=== PATIENT | female | born 1985 | race Caucasian/White ===

== ENCOUNTER 2024-12-27 18:20 | Emergency (ER) | payer OTHER, SELFPAY ==
--- OUTSIDE RECORDS SUMMARY | 2024-09-23 09:38 | XMS_ITS | Continuity of Care Document ---
Author Organization [facility] Address [address] [place] [id number] Phone Care Team Providers Care Manager Star Name Role Phone Nicolette Barrios DDS Unavailable Unavailable Allergies, Adverse Reactions, Alerts Substance Reaction Status Criticality cefaclor Active No Information Sulfa (Sulfonamide Antibiotics) Active No Information Medications Medication Instructions Dosage Effective Dates (start - stop) Status Comments Topamax 200 mg tablet take 1 tablet by o ral route 2 times every day 200 MG - Active Lyrica 25 mg capsule take 1 capsule by o ral route 3 times every day 25 MG - Active Concerta 54 mg tablet,extended release take 1 tablet by oral route every day in the morning 54 MG - Active Procedures Procedure Date Prophylaxis Adult Nutrit Couns For [employer] Of [place] Dis Sep Oral Hygiene Instruction Bitewings Four Films Prophylaxis Adult Nutrit [employer]s For [employer] [place] Dis Mar Oral Hygiene Instruction Periodic Oral Eval Estab Patient 2023 Prophylaxis Adult Nutrit Couns For [employer] Of [place] Dis Sep Oral Hygiene Instruction Bitewings Four Films Prophylaxis Adult Moderate Risk Nutrit [employer] [place] Dis Feb Oral Hygiene Instruction Prophylaxis Adult Oral Hygiene Instruction Bitewings Four Films Prophylaxis Adult Oral Hygiene Instruction Periodic Oral Eval Estab Patient 2021 Prophylaxis Adult Oral Hygiene Instruction Bitewings Four Films Prophylaxis Adult Oral Hygiene Instruction Periodic Oral Eval Estab Patient 2020 PPE Prophylaxis Adult Oral Hygiene Instruction Prophylaxis Adult [employer]rit [employer] [place] Dis May Tobacco Counseling Oral Hygiene Instruction Intraoral-periapical 1st Film 9 Nutrit [employer] [place] Dis Jan Tobacco Counseling Oral Hygiene Instruction Limited Oral Eval Periodic Oral Eval Estab Patient 2018 Bitewings-two Films Prophylaxis Adult Oral Hygiene Instruction Prophylaxis Adult Nutrit Couns For [employer] Of [place] Dis May Oral Hygiene Instruction Periodic Oral Eval Estab Patient 2017 Bitewings Four Films Prophylaxis Adult Oral Hygiene Instruction Prophylaxis Adult Oral Hygiene Instruction IMMUNIZATION ADMIN FLU VAC NO PRSV 4 TIARA 3 YRS+ Periodic Oral Eval Estab Patient 2016 Prophylaxis Adult Oral Hygiene Instruction Prophylaxis Adult Oral Hygiene Instruction Periodic Oral Eval Estab Patient 2015 Bitewings Four Films Prophylaxis Adult Oral Hygiene Instruction Prophylaxis Adult Oral Hygiene Instruction Resin Composite 1s; Posterior 5 Treatment Completed Periodic Oral Eval Estab Patient 2014 Prophylaxis Adult Bitewings Four Films Prophylaxis Adult Oral Hygiene Instruction OFFICE/OUTPATIENT VISIT, EST Prophylaxis Adult Oral Hygiene Instruction Comp Oral Eval New/estab Patient 2013 Intraoral-complete Series (bw) 14 OFFICE/OUTPATIENT VISIT, EST OFFICE/OUTPATIENT VISIT, EST OFFICE/OUTPATIENT VISIT, EST OFFICE/OUTPATIENT VISIT, EST URINALYSIS NONAUTO W/O SCOPE OFFICE/OUTPATIENT VISIT, EST OFFICE/OUTPATIENT VISIT, EST ODH SPECIMEN HANDLING (GC/CHLAMYDIA) August OFFICE/OUTPATIENT VISIT, EST OFFICE/OUTPATIENT VISIT, EST CARE COORDINATION OFFICE/OUTPATIENT VISIT, EST ROUTINE VENIPUNCTURE RISK ASSISSMENT COUNSELING AND EDUCATION OFFICE/OUTPATIENT VISIT, EST URINE TEST Advance Directives Directive Yes / No Effective Date File Name No Information Encounters Encounter Description Practice Location Reason(s) For Visit Diagnoses Date Provider Providers Copied on Encounter [facility], [address] [place] [address], [id number] , tel: [phone] [facility] (chief complaint) Body mass index [BMI] 20.0-20.9, adultEncounter for screening for dental disorders 5 [employer] Nicolette. . tel:[phone] [address] [place] [address], [address] [place] [address], [id number] , tel:[phone] [facility] (chief complaint) Encounter for screening for dental disorders 4 [employer] Nicolette. . tel:[phone] [address] [place] [address], [address] [place] [address], [id number] , tel:[phone] [facility] (chief complaint) Encounter for screening for dental disorders 4 Sophie PARSONSS Nicolette. . tel:[phone] [facility], [address] [place], [place], [id number] , [place] tel: [phone] [facility] [place] (chief complaint) Encounter for screening for dental disorders 3 Augusto DDS Lawrence. [address] [place], [address], [place]. tel:[phone] [facility], [address] [place], [place], [id number] , [place] tel:[phone] Dental Clinic prophy (chief complaint) Encounter for screening for dental disorders 2 Sophie Jaramillo. [address] [place], [place], [id number], [place]. tel:[phone] [facility], [address] [place], [place], [id number] , [place] tel: [phone] [facility] Prophy adult (chief complaint) Encounter for screening for dental disorders 2 Kurt Pickett. [address] [place], [place], [id number], [place]. tel:[phone] [facility], [address] [place] [address], [id number] , [place] tel:[phone] Dental Clinic prophy (chief complaint) Encounter for screening for dental disorders 1 Michel Huff. [address] [place], [address], [place]. tel:[phone] [facility], [address] [place], [place], [id number] , [place] tel:[phone] Dental Clinic prophy (chief complaint) Encounter for screening for dental disorders 1 Kurt Pickett. [address] [place], [place], [id number], [place]. tel:[phone] [facility], [address] [place], [place], [id number] , [place] tel:[phone] [facility] Clinic Encounter for screening for dental disorders 0 Jazmyn DDS Sarita. [address] [place], [place], [id number], [place]. tel:[phone] [facility], [address] [place], [id number] , [place] tel: [phone] Dental Clinic Encounter for screening for dental disorders - 0 Zane Wells. [address] [place], [place], [id number], [place]. tel:[phone] [facility], [address] [place], [place], [id number] , [place] tel:[phone] Dental Clinic dental limited (chief complaint) Encounter for screening for dental disorders [address] [facility]. [address] [place], [place], [id number], [place]. tel:[phone] [address] [place] [address], [address] [place] [address], [id number] , [place] tel: [phone] [facility] Prophy (chief complaint) Encounter for screening for dental disorders 9 Zane Wells. [address] [place], [place], [id number], [place]. tel:[phone] [facility], [address] [place] [address], [id number] , [place] tel: [phone] Dental Clinic prophy adult (chief complaint) Encounter for screening for dental disorders [address] [facility]. [address] [place], [place], [id number], [place]. tel:[phone] [facility], [address] [place], [place], [id number] , [place] tel:[phone] Dental Clinic prophy (chief complaint) Encounter for screening for dental disorders 0 8 Marcia Lazaro . [address] [place], [address], [place]. tel:[phone] [facility], [address] [place] [address], [id number] , [place] tel:[phone] Dental Clinic prophy (chief complaint) Encounter for screening for dental disorders 8 Eduardo DMD Chrisn. [address] [facility], [place], [address], [place]. tel:[phone] [facility], [address] [facility], [place], [place], [id number] , [place] tel:[phone] [facility] No Information [address] [facility], [place], [place], [id number], [place]. tel:[phone] [facility], [address] [facility], [place], [place], [id number] , [place] tel:[phone] Dental Clinic Prophy (chief complaint) Encounter for screening for dental disorders [address] [facility], [place], [address], [place]. tel:[phone] [facility], [address] [place], [place], [id number] , [place] tel:[phone] Dental Clinic prophy (chief complaint) Encounter for screening for dental disorders 7 Morris RODERICK Vasquez. [address] [place], [address], [place]. tel:[phone] [facility], [address] [place], [place], [id number] , [place] tel:[phone] Dental Clinic prophy (chief complaint) Encounter for screening for dental disorders 6 [facility]. [address] [place], [place], [id number], [place]. tel:[phone] [facility], [address] [place], [place], [id number] , [place] tel:[phone] Dental Clinic prophy (chief complaint) Encounter for screening for dental disorders 5 [facility]. [address] [place], [place], [id number], [place]. tel:[phone] [facility], [address] [place], [place], [address] , [place] tel:[phone] Dental Clinic Dental examination Sep 0- 5 [facility] July. [address] [place], [place], [id number], [place]. tel:[phone] [facility], [address] [place], [place], [address] , [place] tel:[phone] Dental Clinic Dental examination 8 5 [facility] July. [address] [place], [place], [id number], [place]. tel:[phone] [facility], [address] [place], [place], [id number] , [place] tel:[phone] Dental Clinic Dental examination 4 [facility]. [address] [place], [place], [id number], [place]. tel:[phone] OFFICE/OUTPA TIENT VISIT, [facility], [address] [place], [place], [id number] , [place] tel:[phone] [facility] Influenza Vaccine 4 Jazlyn Up. [address] [place], [place], [id number], [place]. tel:[phone] [facility], [address] [place] [address], [id number] , [place] tel:[phone] Dental Clinic Dental examination 0 4 [facility] July. [address] [place], [place], [id number], [place]. tel:[phone] [facility], [address] [place], [place], [address] , [place] tel:[phone] Dental Clinic Dental examination 4 [facility] July. [address] [place], [place], [address], [place]. tel:[phone] OFFICE/OUTPA TIENT VISIT, [facility], [address] [place], [place], [id number] , [place] tel:[phone] [facility] Routine PN Visit (chief complaint) No Information 3 Radha Pérez. [address] [place], [place], [id number], [place]. tel:[phone] 623 OFFICE/OUTPA TIENT VISIT, [facility], [address] [place], [place], [address] , [place] tel:[phone] [facility] Routine PN Visit (chief complaint) No Information 3 Radha Pérez. [address] [place], [place], [id number], [place]. tel:[phone] OFFICE/OUTPA TIENT VISIT, [facility], [address] [place], [place], [address] , [place] tel:[phone] [facility] Routine PN Visit (chief complaint) Supervision of normal first pregnancySupervi rebel of other normal 3 Radha Pérez. [address] [place], [place], [id number], [place]. tel:[phone] 623 OFFICE/OUTPA TIENT VISIT, [facility], [address] [place], [place], [address] , [place] tel:[phone] [facility] PN problem visit (chief complaint) Supervision of normal first 3 Radha Pérez. [address] [place], [place], [address], [place]. tel:[phone] 623 OFFICE/OUTPA TIENT VISIT, [facility], [address] [place], [place], [address] , [place] tel:[phone] [facility] No Information 3 Radha Pérez. [address] [place], [place], [address], [place]. tel:[phone] OFFICE/OUTPA TIENT VISIT, [facility], [address] [place], [place], [address] , [place] tel:[phone] [facility] test (chief complaint) examination or test, positive result 3 Jazlyn Up. [address] [place], [place], [id number], . tel:[phone] Family History Family Member Type Diagnosis Age At Onset Problem (finding) Family history of Diabe sonja mellitus Brother Problem (finding) asthma Problem (finding) Family history of strok e Mother Problem (finding) Arthritis Mother Problem (finding) hypertension Mother Problem (finding) migraine Problem (finding) Family history of [place] Mother Problem (finding) Alive and well Brother Problem (finding) Alive and well Immunizations Vaccine Date Status Comments Influenza virus vaccine, injectable, quadrivalent, split virus, preservative free, 3 years or older Fluarix, Flulaval or Fluzone Quad administered Source: New Immuniza tion Record Flu (split) (3 yrs or older) administered Note: Flu vis given. ; Source: New Immunization Record Payers Payer name Insurance type Covered republican ID Authoriza tion(s) D UHC Medicaid [employer] [place] [id number] D Medicaid Wrap - [facility] [place] [id number] [facility] [id number] Medicaid Wrap - [employer] MC [id number] Social History Type Description Quantity Date Captured Comments Alcohol Use Details No Caffeine Use Details tea 2 cups per day Tobacco Use Status Never smoked tobacco 2024 Smoking Status Never smoker Sex Female Yes - Patient is cur rently Sexual Orientation Straight or heterosexual Gender Identity Female Vital Signs Date / Time: Height Weight BMI Pulse Rate Blood Pressure Temperature Respiratory Rate Body Surface Area Head Circumference Head Circ. Percentile Wt./Michael. Percentile BMI percentile Pulse Ox Inhaled Ox 1:46 PM 64.00 in 54.885 kg (121.00 lbs) 20.7 7 kg/m eter (2) 67 /min 130/84 mm[Hg] 98.00 F Chief Complaint And Reason For Visit From encounter dated '09/23/2024 13:38'. PA (chief complaint). Description: PA Reason For Referral Reason For Referral No Information Plan Of Treatment Date Type Action Status Goal Hep A. Due on du e Goal HPV. Due on due Goal Hepatitis C screening. Due o n due Goal Tdap Vaccine. Due on 2024 due Goal Depression screening. Due on due Goal Unhealthy drug use screening . Due on due Goal Influenza Vaccine. Due on due Goal Tdap. Due on due Goal PRAPARE ASSESSMENT. Due on due Goal Breast exam. Due on due Goal RLP. Due on due Goal Dietary manageme nt education, guidance, and counseling completed Goal Unhealthy drug use screening . Due on due Goal Breast exam. Due on due Goal PRAPARE ASSESSMENT. Due on due Goal Tdap Vaccine. Due on 2023 due Goal Influenza Vaccine. Due on due Goal HPV. Due on due Goal Depression screening. Due on due Goal RLP. Due on due Goal Hepatitis C screening. Due o n due Goal Tdap. Due on due Goal PRAPARE ASSESSMENT. Due on due Goal Breast exam. Due on due Goal RLP. Due on due Goal Tdap Vaccine. Due on 2023 due Goal Unhealthy drug use screening . Due on due Goal Hep A. Due on du e Goal Hepatitis C screening. Due o n due Goal Depression screening. Due on due Goal HPV. Due on due Goal Tdap. Due on due Goal Influenza Vaccine. Due on Oc due Goal Breast exam. Due on 023 due Goal RLP. Due on due Goal Hep A. Due on du e Goal Tdap Vaccine. Due on 2022 due Goal Influenza Vaccine. Due on Oc due Goal PRAPARE ASSESSMENT. Due on N due Goal Depression screening. Due on due Goal Hep A. Due on du e Goal HPV. Due on due Goal Hepatitis C screening. Due o n due Goal Tdap. Due on due Goal Unhealthy drug use screening . Due on due Goal Tdap. Due on due Goal Breast exam. Due on due Goal RLP. Due on due Goal Influenza Vaccine. Due on Oc due Goal Depression screening. Due on due Goal PRAPARE ASSESSMENT. Due on S due Goal Depression screening. Due on due Goal Influenza Vaccine. Due on Oc due Goal RLP. Due on due Goal Tdap. Due on due Goal Breast exam. Due on due Goal RLP. Due on due Goal Influenza Vaccine. Due on Oc due Goal Breast exam. Due on due Goal Tdap. Due on due Goal Depression screening. Due on due Goal Breast exam. Due on due Goal RLP. Due on due Goal Influenza Vaccine. Due on Oc due Goal Depression screening. Due on due Goal Tdap. Due on due Goal Depression screening. Due on due Goal Influenza Vaccine. Due on Oc due Goal RLP. Due on due Goal Tdap. Due on due Goal Breast exam. Due on due Goal Breast exam. Due on due Goal Depression screening. Due on due Goal Tdap. Due on due Goal RLP. Due on due Goal Influenza Vaccine. Due on Ap due Goal Breast exam. Due on due Goal Depression screening. Due on due Goal Tdap. Due on due Goal RLP. Due on due Goal Influenza Vaccine. Due on Ap due Goal Influenza Vaccine. Due on Ap due Goal RLP. Due on due Goal Tdap. Due on due Goal Depression screening. Due on due Goal Breast exam. Due on due Goal Breast exam. Due on due Goal Depression screening. Due on due Goal Tdap. Due on due Goal RLP. Due on due Goal Influenza Vaccine. Due on due Goal Influenza Vaccine. Due on Oc due Goal RLP. Due on due Goal Tdap. Due on due Goal Depression screening. Due on due Goal Breast exam. Due on due Goal Influenza Vaccine. Due on Oc due Goal Depression screening. Due on due Goal Breast exam. Due on due Goal Tdap. Due on due Goal RLP. Due on due Goal Influenza Vaccine. Due on Oc due Goal Tdap. Due on due Goal Depression screening. Due on due Goal RLP. Due on due Goal Breast exam. Due on due Goal Breast exam. Due on due Goal Tdap. Due on due Goal PAP. Due on due Goal Influenza Vaccine. Due on Oc due Goal RLP. Due on due Goal Depression screening. Due on due Goal Influenza Vaccine. Due on Oc due Goal PAP. Due on due Goal Depression screening. Due on due Goal Td vaccine. Due on 17 due Goal Breast exam. Due on due Goal Tdap. Due on due Goal Td vaccine. Due on 16 due Goal Tdap. Due on due Goal Breast exam. Due on due Goal Depression screening. Due on due Goal PAP. Due on due Goal Tdap. Due on due Goal Depression screening. Due on due Goal Breast exam. Due on due Goal Td vaccine. Due on 15 due Goal Td vaccine. Due on 15 due Goal Breast exam. Due on due Goal Depression screening. Due on due Goal Tdap. Due on due Goal Breast exam. Due on due Goal Depression screening. Due on due Goal Td vaccine. Due on 15 due Goal Tdap. Due on due Goal Breast exam. Due on 013 due Goal Influenza Vaccine. Due on due Goal PAP. Due on due Appointment Sara Govea BOOKED History Of Present Illness Encounter Date Complaint History Of Prese nt Illness PA PA PA PA PA PA PA PA prophy prophy Prophy adult 6MRC prophy prophy prophy prophy dental limited lower right toot h bothering patient Prophy Prophy prophy adult 6MRC prophy prophy Prophy Prophy prophy prophy prophy Declined flu madina t Functional Status Date Functional Assessmen t No Information Instructions Date Instruction Additional Infor kavitha Dietary management e ducation, guidance, and counseling Related to Body mass index [BMI] 20.0-20.9, adult Giving encouragement to exercise Related to Body mass index [BMI] 20.0-20.9, adult Assessments Type Assessment Date assessment Body mass index [BMI] 20.0-20.9, adult assessment Encounter for screening for dent al disorders Patient Care Teams Name Effective Dates (start - stop) Status Members No Information
--- OUTSIDE RECORDS SUMMARY | 2024-12-17 16:40 | XMS_ITS | Encounter Summary ---
Author Organization [facility] Address [address] [place] [address] Care Team Providers Care Bus Van Driver Name Role Phone Kyle Colon DO Unavailable [phone] Kyle Colon DO Primary Care Provider [phone] Claudia Cage Unavailable Oxana Kelsey [facility] Unavailable [phone] Encounter Details Date Type Department Care Team (Late st Contact Info) Description 12/17/2024 4:40 PM EDT Office [facility] [address] [place] [phone] Opal Crane, CLIPPER OPERATOR [address] [facility] [address] [place] [address] Salivary gland infection (Primary Dx); Pharyngitis, unspecified etiology; Acute cough; Nasal congestion Social History Tobacco Use Types Packs/Day Years Used Date Smoking Tobacco: Never Smokeless Tobacco: Never Alcohol Use Standard Drinks/Week Comments Yes 1 (1 standard drink = 0.6 oz pure alcohol) caffiene- 1 red bull and 1 pop daily Humiliation, Afraid, Rape, and Kick questionnair e Answer Date Recorded Within the last year, have y ou been afraid of your partner or ex-partner? No 11/07/2022 Within the last year, have y ou been humiliated or emotionally abused in other ways by your partner or ex-partner? No Within the last year, have y ou been kicked, hit, slapped, or otherwise physically hurt by your partner or ex-partner? No 11/07/2022 Within the last year, have y ou been raped or forced to have any kind of sexual activity by your partner or ex-partner? No 11/07/2022 Social Connection and Isolat ion Panel [NHANES] Answer Date Recorded In a typical week, how many times do you talk on the phone with family, friends, or neighbors? More than three times a week 11/07/2022 How often do you get togethe r with friends or relatives? Once a week 11/07/2022 How often do you attend chur or faith services? More than 4 times per year 11/07/2022 Do you belong to any clubs o r organizations such as sabianism groups, unions, fraternal or athletic groups, or school groups? Yes 11/07/2022 How often do you attend meet ings of the clubs or organizations you belong to? More than 4 times per year 11/07/2022 Are you , , di vorced, , never , or living with a partner? Never 11/07/2022 AUDIT-C Answer Date Recorded Q1: How often do you have a drink containing alc ohol? 2-4 times a month 08/28/2023 Q2: How many drinks containi ng alcohol do you have on a typical day when you are drinking? 3 or 4 08/28/2023 Q3: How often do you have si x or more drinks on one occasion? Weekly 08/28/2023 Overall Financial Resource Strain (CARDIA) Answe r Date Recorded How hard is it for you to pa y for the very basics like food, housing, medical care, and heating? Not hard at all 11/07/2022 PHQ-2 Answer Date Recorded Patient Health Questionnaire-2 Score 2 07/03/2024 [facility] of Occupat ional Health - Occupational Stress Questionnaire Answer Date Recorded Do you feel stress - tense, restless, nervous, or anxious, or unable to sleep at night because your mind is troubled all the time - these days? Rather much 11/07/2022 Exercise Vital Sign Answer Date Recorde d On average, how many days pe r week do you engage in moderate to strenuous exercise (like a brisk walk)? 3 days 11/07/2022 On average, how many minutes do you engage in exercise at this level? 10 min 11/07/2022 Hunger Vital Sign Answer Date Recorded Within the past 12 months, y ou worried that your food would run out before you got the money to buy more. Never true 11/08/19 23 Within the past 12 months, t he food you bought just didn't last and you didn't have money to get more. Never true 11/07/2022 PRAPARE - Transportation Answer Date Re corded In the past 12 months, has l ack of transportation kept you from medical appointments or from getting medications? No 10/10 In the past 12 months, has l ack of transportation kept you from meetings, work, or from getting things needed for daily living? No 11/07/2022 Housing Stability Vital Sign Answer Rome e Recorded In the last 12 months, was t here a time when you were not able to pay the mortgage or rent on time? No 11/07/2022 In the last 12 months, how many places have you lived? 1 11/07/2022 In the last 12 months, was t here a time when you did not have a steady place to sleep or slept in a halfway (including now)? No 11/07/2022 Education Answer Date Recorded What is the highest level of school you have completed or the highest degree you have received? 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 [address], [address] [facility], [address] P: [phone] F: [phone] HPI Historian of HPI: patient Sara Govea is a 39 y.o. female who presents today to the Urgent Care with the following complaints and denials which have been present for 5 day(s) pt states she has been very tired. C/O Denies Symptom Comments [x] [] Runny Nose [x] [] Difficulty Swallowing [x] [] Sore Throat [x] [] Cough [x] [] Ear Pain B/l [] [x] Fever [] [x] Chills [x] [] Nasal Congestion [] [x] Myalgia [x] [] Sinus Pain [x] [] Sinus Pressure VALDEZ Additional Comments: pt has taken ibuprofen, dayquill OTC medication without relief ROS A complete system ROS was performed and negative aside from the pertinent positives noted in the HPI and PE. IH Testing: The following tests were performed Rapid Strep Nyasia Rapid COVID Test SEE TEST(S) ORDERS FOR RESULTS PHYSICAL EXAM Examination General examination: General Examination: alert, oriented, normal affect, well-appearing, in no acute distress, well developed, well nourished. Head: normocephalic, atraumatic Eyes: sclera anicteric Ears: TM dull and serous middle ear fluid Nose: Mild congestion with clear drainage noted Oral Cavity: mucosa moist Throat: Erythema and PND, salivary gland enlarged on the right Neck/Thyroid: neck supple, FROM, no cervical lymphadenopathy Lymph nodes: cervical nodes enlarged, tender, and easily moveable. Skin: no rashes Heart: no murmurs, regular rate and rhythm, S1, S2 normal Lungs: clear to auscultation bilaterally Musculoskeletal: normal Extremities: no edema, no cyanosis. Neurologic: nonfocal Psych: alert, oriented, cooperative with exam TREATMENT PLAN 1. Salivary gland infection (Primary) Discussed diagnosis, use of augmentin and its most common side effects. She is advised to increase her fluids, rest and continue the augmentin as ordered Follow up if continued or worsening symptoms. - amoxicillin-clavulanate (Augmentin) 875-125 MG tablet; Take 1 tablet (875 mg) by mouth in the morning and 1 tablet (875 mg) before bedtime. Do all this for 10 days. Dispense: 20 tablet; Refill: 0 2. Pharyngitis, unspecified etiology Rapid covid testing negative - RAPID COVID 19 ANTIGEN - RAPID STREP - methylPREDNISolone (Medrol Dospak) 4 MG tablets; Follow schedule on package instructions Dispense: 21 tablet; Refill: 0 3. Acute cough Discussed the use of capmist Dm and its most common side effects. - inpemgqgijcfjje-DB-NZ 60-15-400 MG tablet; Take 1 tablet by mouth 4 (four) times a day as needed (cough and congestion) for up to 10 days Dispense: 40 tablet; Refill: 0 4. Nasal congestion - petperuzxzoclhb-VN-MZ 60-15-400 MG tablet; Take 1 tablet by mouth 4 (four) times a day as needed (cough and congestion) for up to 10 days Dispense: 40 tablet; Refill: 0 documented in this encounter Plan of Treatment Upcoming Encounters Date Type Department Care Team (Late st Contact Info) Description 02/27/2025 2:15 PM EST Procedure Visit [facility] [address] [facility] [address] [place] [address] Monse Conrad CLIPPER OPERATOR 5[address] [facility] [address] [address] 04/21/2025 4:00 PM EST Office Visit [facility] [address] [facility] [address] [place] [address] Oxana Kelsey PMHNP- 112 [facility] [address] [place] [address] documented as of this encounter Procedures Procedure Name Priority Date/Time Associated Diagnosis Comments RAPID COVID 19 ANTIGEN Routine 12/17/2024 4:42 PM EDT Pharyngitis, unspecified etiology RAPID STREP Routine 12/17/2024 4:38 PM EDT Pharyngitis, unspecified etiology documented in this encounter Results * RAPID COVID 19 ANTIGEN (12/17/2024 4:42 PM EDT) COVID 19 RESULT OP neg Negative Nasal 12/17/2024 4:42 PM EDT Boaz Ash DO POINT OF CARE TEST ENTER/ED IT ORDERABLES Final Result * RAPID STREP (12/17/2024 4:38 PM EDT) RESULT neg Negative Throat 12/17/2024 4:38 PM EDT Boaz Ash DO POINT OF CARE TEST ENTER/ED IT ORDERABLES Final Result documented in this encounter Visit Diagnoses Diagnosis Salivary gland infection- Primary Sialoadenitis Pharyngitis, unspecified etiology Acute cough Nasal congestion Other diseases of nasal cavity and sinuses documented in this encounter Additional Health Concerns Assessment Noted Time PHQ-9 Depression Total Score: 4 07/04/19 25 3:46 PM EDT documented as of this encounter Care Teams Bus Van Driver Relationship Specialty Start Date End Date Kyle Colon DO [address] [place] [address] PCP - [facility] 07/09/22 Kyle Colon DO [address] [place] [address] PCP - General Family Medicine 06/23/23 Claudia Cage LISW-S [address] [place] [address] Cabinetmaker Apprentice Behavioral Health 04/17/24 Oxana Kelsey, PMHNP-BC [address] [phone] Nurse Practitioner Behavioral Health 06/05/24 documented as of this encounter
[2024-12-27 18:29] VITALS: BP 139/98; PULSE 85; TEMP 36.9; O2SAT 98; BMI 20.6
--- OUTSIDE RECORDS SUMMARY | 2024-12-27 18:43 | XMS_ITS | Encounter Summary ---
Author Organization [facility] Address [address] [facility] [place] [address] Care Team Providers Care Anesthesiology Medical Doctor Name Role Phone Kyle Colon DO Unavailable [phone] Unallocated, Noms Provider Primary Care Provi italia Kyle Colon DO Primary Care Provider Judith Mobley LPN Unavailable Unavailable Claudia Cage Unavailable [phone] Oxana Kelsey [facility]- Unavailable Clair Osborne RN Unavailable [phone] Encounter Details Date Type Department Care Team (Late st Contact Info) Description 11/08/2022 [facility] [address] [facility] [address] [place] [phone] Kyle Colon, DO [address] [facility] [address] [place] [address] Social History Tobacco Use Types Packs/Day Years Used Date Smoking Tobacco: Never Smokeless Tobacco: Never Tobacco Cessation:Counseling Given: Not Answered Alcohol Use Standard Drinks/Week Comments Yes 0 (1 standard drink = 0.6 oz pur e alcohol) 1-2x a month Humiliation, Afraid, Rape, and Kick questionnair e [...] 11/07/2022 How often do you attend chur ch or cheondoism services? More than 4 times per year 11/07/2022 Do you belong to any clubs o r organizations such as episcopal groups, unions, fraternal or athletic groups, or [...] containing alc ohol? 2-4 times a month 11/07/2022 Q2: How many drinks containi ng alcohol do you have on a typical day when you are drinking? 1 or 2 11/07/2022 Q3: How often do you have si x or more drinks on one occasion? Never 11/07/2022 Overall Financial Resource Strain (CARDIA) Answe r Date Recorded How hard is it for you to pa y for the very basics like food, housing, medical care, and heating? Not hard at all 11/07/2022 PHQ-2 Answer Date Recorded Patient Health Questionnaire-2 Score 0 11/08/2022 [facility] [place] of Occupat ional Health - Occupational Stress [...] in a halfway (including now)? No 11/07/2022 Comments Unknown Sex and Gender Information Value Date Recorded Sex Assigned at Female 12/22/2022 12:43 PM EDT Legal Sex Female 6:58 PM EDT Gender Identity Female 12/22/2022 12:43 PM EDT Sexual Orientation Not on file COVID-19 Exposure Response Date Recorded In the last 10 days, have yo u been in contact with someone who was confirmed or suspected to have Coronavirus/COVID-19? No / Unsure 11/07/2022 8:02 PM EDT documented as of this encounter Functional Status * Over the past 2 weeks, how often have you been bothered by any of the following problems? Question Answer Date of Assessment Author Little interest or pleasure in doing things Not at all 11/08/2022 2:36 PM EDT Ivelisse Tomlinson LP N Feeling down, depressed, or hopeless Not at all 11/08/2022 2:36 PM EDT Ivelisse Tomlinson LP N Patient Health Questionnaire -2 Score 0 11/08/2022 2:36 PM EDT Ivelisse Tomlinson LP N documented as of this encounter Plan of Treatment Upcoming Encounters Date Type Department Care Team (Late st Contact Info) Description 02/27/2025 2:15 PM EST Procedure Visit [facility] [address] [place] [phone] Monse Conrad, IT APPLICATION ADMINISTRATOR [address] [facility] [address] [id number] 04/21/2025 4:00 PM EST Office Visit [facility] 112 [facility] [address] [place] [address] Oxana Kelsey [facility] 112 [facility] [address] [place] [phone] documented as of this encounter Visit Diagnoses Not on filedocumented in this encounter Care Teams Anesthesiology Medical Doctor Relationship Specialty Start Date End Date Kyle Colon DO [address] [email or web address] [address] [place] [address] PCP - [facility] 07/09/22 Unallocated, Nomfranklyn Cortez MD [address] [place] [address] PCP - General Family Medicine 04/26/23 06/22/23 Kyle Colon DO [address] [email or web address] [address] [place] [address] PCP - General Family Medicine 06/23/23 Judith Molbey LPN Licensed Practical Nurse Family Medicine 02/21/24 06/10/24 Claudia Cage LISW-S [address] [place] [address] Autism Specialist Behavioral Health 04/17/24 Oxana Kelsey PMHNP- [address] [place] [address] Nurse Practitioner Behavioral Health 06/05/24 Clair Osborne, ALE [address] [place] [address] Licensed Practical Nurse Family Medicine 06/10/24 06/24/24 documented as of this encounter
--- OUTSIDE RECORDS SUMMARY | 2024-12-27 18:43 | XMS_ITS | Encounter Summary ---
Author Organization [facility] Address [address] [facility] [place] [address] Care Team Providers Care Complaint Evaluation Officer Name Role Phone Kyle Colon DO Unavailable [phone] Kyle Colon DO Primary Care Provider [phone] Judith Mobley LPN Unavailable Unavailable Claudia Cage Unavailable Oxana Kelsey [facility]- Unavailable Clair Osborne RN Unavailable [phone] Encounter Details Date Type Department Care Team (Late st Contact Info) Description 03/06/2024 [facility] [place] [facility] [address] [facility] [address] [place] [phone] Kyle Colon, DO [address] [facility] [address] [place] [address] Social History Tobacco Use Types Packs/Day Years Used Date Smoking Tobacco: Never Smokeless Tobacco: Never Alcohol Use Standard Drinks/Week Comments Yes 1 (1 standard drink = 0.6 oz pure alcohol) 1-2x a month, coffee,soda/pop,tea,energy drinks 2-3x a week Humiliation, Afraid, Rape, and Kick questionnair e [...] week 11/07/2022 How often do you attend [facility] or orthodoxy services? More than 4 times per year 11/07/2022 Do you belong to any clubs o r organizations such as faith groups, unions, fraternal or athletic groups, or [...] Date Recorded Patient Health Questionnaire-2 Score 0 10/03/2023 [facility] [place] of Occupat ional Health - Occupational Stress [...] place to sleep or slept in a chcf (including now)? No 11/07/2022 Education Answer Date [...] on file documented as of this encounter Plan of Treatment Upcoming Encounters Date Type Department Care Team (Late st Contact Info) Description 02/27/2025 2:15 PM EST Procedure Visit [facility] [address] [place] [address] Monse Conrad NP 53[address] [facility] [address] [place] [address] 04/21/2025 4:00 PM EST Office Visit [facility] [address] [facility] [address] [place] [phone] Oxana Kelsey, [facility] 112 [facility] [address] [place] [address] documented as of this encounter Visit Diagnoses Not on filedocumented in this encounter Additional Health Concerns Assessment Noted Time PHQ-9 Depression Total Score: 12 024 2:18 PM EDT documented as of this encounter Care Teams Complaint Evaluation Officer Relationship Specialty Start Date End Date Kyle Colon DO [address] [facility] [address] [place] [address] PCP - [facility] 07/09/22 Kyle Colon DO [address] [facility] 230 [place] [address] PCP - General Family Medicine 06/23/23 Judith Mobley LPN Licensed Practical Nurse Family Medicine 02/21/24 06/10/24 Claudia Cage LISW-S [address] [facility] [address] [place] [address] Game Protector Behavioral Health 04/17/24 Oxana Kelsey, [facility] [address] [facility] [facility] [address] [place] [address] Nurse Practitioner Behavioral Health 06/05/24 Clair Osborne, RN [address] [place] [address] Licensed Practical Nurse Family Medicine 06/10/24 06/24/24 documented as of this encounter
--- OUTSIDE RECORDS SUMMARY | 2024-12-27 18:43 | XMS_ITS | Encounter Summary ---
Author Organization [facility] Address [address] [place] [address] Care Team Providers Care Automobile Body Repair Supervisor Name Role Phone Kyle Colon DO Unavailable [phone] Kyle Colon DO Primary Care Provider [phone] Judith Mobley LPN Unavailable Unavailable Claudia Cage Unavailable Oxana Kelsey PMHNP- Unavailable Clair Osborne RN Unavailable [phone] Encounter Details Date Type Department Care Team (Late st Contact Info) Description 03/01/2024 External Result Encounter [facility] External Department Unsolicited Kyle Colon, DO [address] [facility] [address] [place] [address] Social History Tobacco Use Types Packs/Day Years [...] How often do you attend chur or anglican services? More than 4 times per year 11/07/2022 Do you belong to any clubs o r organizations such as yarsanism groups, unions, fraternal or athletic groups, or [...] Recorded Patient Health Questionnaire-2 Score 0 10/03/2023 [facility] [place] of Occupat ional Health - Occupational Stress [...] place to sleep or slept in a fdc (including now)? No 11/07/2022 Education Answer Date [...] Description 02/27/2025 2:15 PM EST Procedure Visit [facility] [address] [place] [address] Monse Conrad, DUMP TRUCK OPERATOR [address] [facility] [address] [place] [address] 04/21/2025 4:00 PM EST Office Visit [facility] [address] [facility] [address] [place] [phone] Oxana Kelsey, PMHNP-BC [address] [facility] [address] [place] [address] documented as of this encounter Procedures Procedure Name Priority Date/Time Associated Diagnosis Comments TRANSTHORACIC ECHO (TTE) COMPLETE 03/01/2024 8:43 AM EST documented in this encounter Results * Transthoracic echo (TTE) complete (03/01/2024 8:43 AM EST) Anatomical Region Laterality Modality Heart Ultrasound 03/01/2024 8:43 AM EST Narrative 03/01/2024 10:31 AM EST [facility] [place] [address] Echocardiogram Signed Patient: Sara Govea MR#: [id number] : 1985 Acct:[id number] Age/Sex: 39 / F ADM Date: 03/01/24 Loc: Room: Type: [facility] Attending Dr: Kyle Colon DO Ordering Provider: Kyle Colon DO Date of Service: 03/01/24/ ECH/ECH echo transthoracic: PALPITATIONS, ELEVATED BLOOD PRESSURE Copies to: MD Kyle Castaneda DO Sara Torres AM Patient Location: : 1985 Gender: Female (MM/DD/YYYY) Age: 39 Years Ordering Physician: Kyle Colon Height: 64 in Weight: 131.285 lb Performed By: STEVIE De La Garza BSA: 1.64 m2 BP: 141 / 101 mmHg HR: 51 bpm Reason For Study: PALPITATIONS, ELEVATED BLOOD PRESSURE History: Exercised induced asthma + + Interpretation Summary Ejection Fraction = 60-65%. The left ventricular wall motion is normal. A variety of Doppler measurements indicate normal left ventricular diastolic function. There is trace mitral regurgitation. There is no comparison study available. Procedure/Quality: A two-dimensional transthoracic echocardiogram with color flow and Doppler was performed. The study was technically good in quality. Left Ventricle: The left ventricular size is normal. The left ventricular thickness is normal. Ejection Fraction = 60-65%. A variety of Doppler measurements indicate normal left ventricular diastolic function. The left ventricular wall motion is normal. Left Atrium: The left atrium appears normal in size. Right Atrium: The right atrium appears normal in size. Right Ventricle: The right ventricle is normal in size and function. Aortic Valve: The aortic valve is normal in structure. No hemodynamically significant valvular aortic stenosis. No aortic regurgitation is present. Mitral Valve: The mitral valve is normal in structure. No significant mitral valve stenosis. There is trace mitral regurgitation. Tricuspid Valve: The tricuspid valve is normal in structure. There is trace tricuspid regurgitation. Pulmonic Valve: The pulmonic valve is not well visualized. No significant pulmonic regurgitation. Arteries: The aortic root is normal size. Pericardium/Pleura: No pericardial effusion seen. There is no pleural effusion. IVC/Hepatic Veins: The inferior vena cava is normal in size, with a normal collapsibility index. MMode/2D Measurements Calculations IVSd (0.7-1.1 cm): 0.83 cm LVIDd (3.7-5.4 cm): 4.7 cm LVPWd (0.7-1.1 cm): 0.86 cm LVIDs (2.3-3.6 cm): 3.2 cm LA dimension (2.3-4.0 cm): 3.0 Ao root diam (2.0-3.2 cm): 2.9 cm cm FS: 31.9 % Ao root area: 6.5 cm2 EDV(Teich): 100.0 ml LVOT diam: 1.97 cm ESV(Teich): 39.9 ml LVOT area: 3.1 cm2 EF(Teich): 60.1 % LAV(MOD-sp2): 45.0 ml LAV(MOD-sp4): 45.9 ml LA A2 area: 16.5 cm2 LA A4 area: 16.5 cm2 LA length (vol): 4.8 cm LA vol: 48.1 ml LA vol index: 29.4 ml/m2 Doppler Measurements Calculations MV E max gena: 79.7 cm/sec Ao V2 max: 122.7 cm/sec MV A max gena: 67.3 cm/sec Ao max P.0 mmHg MR max gena: 281.7 cm/sec Ao mean P.5 mmHg MV V2 VTI: 28.3 cm Ao V2 mean: 87.4 cm/sec MV P1/2t: 64.3 msec Ao V2 VTI: 27.0 cm MV dec time: 0.21 sec REUBEN(I,D): 2.5 cm2 MV dec slope: 451.7 cm/sec REUBEN(V,D): 2.29 cm2 E/E' lat: 6.3 E/E' med: 8.9 TV max P.0 mmHg LV V1 max: 91.7 cm/sec TR max gena: 219.4 cm/sec LV V1 max P.4 mmHg TR max P.2 mmHg LV V1 mean: 69.1 cm/sec RAP systole: 10.0 mmHg LV V1 mean P.05 mmHg LV V1 VTI: 22.3 cm + + + + + + + : Electronically : : signed by: Blanquita : : : : Alex : : : : on: 03/01/2024, : : : : 10:31 AM : + + + Transcribed By: SCV Performed At: 03/01/24 0843 Signed By: Blanquita Johnson MD 03/01/24 1031 Procedure Note Blanquita Johnson MD - 03/01/2024 [facility] [place] [address] Echocardiogram Signed Patient: Sara Govea LMR#: [id number] : 1985Acct:[id number] Age/Sex: 39 / FADM Date: 03/01/24 Loc: Room:Type: [facility] Attending Dr: Kyle Colon DO Ordering Provider: Kyle Colon DO Date of Service: 03/01/24/ ECH/ECH echo transthoracic: PALPITATIONS,ELEVATED BLOOD PRESSURE Copies to: MD Kyle Castanead DO Brandi L AM Patient Location: : 1985 Gender: Female (MM/DD/YYYY) Age: 39 Years Ordering Physician: Kyle Colon Height: 64 in Weight: 131.285 lb Performed By: STEVIE De La Garza BSA: 1.64 m2 BP: 141 / 101 mmHg HR: 51 bpm Reason For Study: PALPITATIONS, ELEVATED BLOOD PRESSURE History: Exercised induced asthma + + Interpretation Summary Ejection Fraction = 60-65%. The left ventricular wall motion is normal. A variety of Doppler measurements indicate normal left ventricular diastolic function. There is trace mitral regurgitation. There is no comparison study available. Procedure/Quality: A two-dimensional transthoracic echocardiogram with color flow and Doppler was performed. The study was technically good in quality. Left Ventricle: The left ventricular size is normal. The left ventricular thickness is normal. Ejection Fraction = 60-65%. A variety of Doppler measurements indicate normal left ventricular diastolic function. The left ventricular wall motion is normal. Left Atrium: The left atrium appears normal in size. Right Atrium: The right atrium appears normal in size. Right Ventricle: The right ventricle is normal in size and function. Aortic Valve: The aortic valve is normal in structure. No hemodynamically significant valvular aortic stenosis. No aortic regurgitation is present. Mitral Valve: The mitral valve is normal in structure. No significant mitral valve stenosis. There is trace mitral regurgitation. Tricuspid Valve: The tricuspid valve is normal in structure. There is trace tricuspid regurgitation. Pulmonic Valve: The pulmonic valve is not well visualized. No significant pulmonic regurgitation. Arteries: The aortic root is normal size. Pericardium/Pleura: No pericardial effusion seen. There is no pleural effusion. IVC/Hepatic Veins: The inferior vena cava is normal in size, with a normal collapsibility index. MMode/2D Measurements Calculations IVSd (0.7-1.1 cm): 0.83 cm LVIDd (3.7-5.4 cm): 4.7 cm LVPWd (0.7-1.1 cm): 0.86 cm LVIDs (2.3-3.6 cm): 3.2 cm LA dimension (2.3-4.0 cm): 3.0 Ao root diam (2.0-3.2 cm): 2.9 cm cm FS: 31.9 % Ao root area: 6.5 cm2 EDV(Teich): 100.0 ml LVOT diam: 1.97 cm ESV(Teich): 39.9 ml LVOT area: 3.1 cm2 EF(Teich): 60.1 % LAV(MOD-sp2): 45.0 ml LAV(MOD-sp4): 45.9 ml LA A2 area: 16.5 cm2 LA A4 area: 16.5 cm2 LA length (vol): 4.8 cm LA vol: 48.1 ml LA vol index: 29.4 ml/m2 Doppler Measurements Calculations MV E max gena: 79.7 cm/sec Ao V2 max: 122.7 cm/sec MV A max gena: 67.3 cm/sec Ao max P.0 mmHg MR max gena: 281.7 cm/sec Ao mean P.5 mmHg MV V2 VTI: 28.3 cm Ao V2 mean: 87.4 cm/sec MV P1/2t: 64.3 msec Ao V2 VTI: 27.0 cm MV dec time: 0.21 sec REUBEN(I,D): 2.5 cm2 MV dec slope: 451.7 cm/sec REUBEN(V,D): 2.29 cm2 E/E' lat: 6.3 E/E' med: 8.9 TV max P.0 mmHg LV V1 max: 91.7 cm/sec TR max gena: 219.4 cm/sec LV V1 max P.4 mmHg TR max P.2 mmHg LV V1 mean: 69.1 cm/sec RAP systole: 10.0 mmHg LV V1 mean P.05 mmHg LV V1 VTI: 22.3 cm + + + + + + + : Electronically: : signed by: Blanquita: :: : Alex: :: : on: 03/01/2024,: :: : 10:31 AM: + + + Transcribed By: SCV Performed At: 03/01/24 0843 Signed By: Blanquita Johnson MD 03/01/24 1031 us Kyle Colon DO CV ECHO PROCEDURES Final R esult documented in this encounter Visit Diagnoses Not on filedocumented in this encounter Additional Health Concerns Assessment Noted Time PHQ-9 Depression Total Score: 12 024 2:18 PM EDT documented as of this encounter Care Teams Automobile Body Repair Supervisor Relationship Specialty Start Date End Date Kyle Colon DO [address] [place] [address] PCP - [facility] 07/09/22 Kyle Colon DO [address] [place] [address] PCP - General Family Medicine 06/23/23 Judith Mobley LPN Licensed Practical Nurse Family Medicine 02/21/24 06/10/24 Claudia Cage LISW-S [address] [place] [address] Parts Product Analyst Behavioral Health 04/17/24 Oxana Kelsey PMHNP- [address] [facility] [address] [place] [phone] Nurse Practitioner Behavioral Health 06/05/24 Clair Osbrone, RN [address] [place] [address] Licensed Practical Nurse Family Medicine 06/10/24 06/24/24 documented as of this encounter
--- OUTSIDE RECORDS SUMMARY | 2024-12-27 18:43 | XMS_ITS | Encounter Summary ---
Author Organization [facility] Address [address] [place] [address] Care Team Providers Care Lead Software Qa Engineer Name Role Phone Kyle Colon DO Unavailable [phone] Unallocated, [facility] Provider Primary Care Provi italia Kyle Colon DO Primary Care Provider + [phone] Judith Mobley LPN Unavailable Unavailable Claudia Cage-S Unavailable [phone] Oxana Kelsey [facility]- Unavailable Clair Osborne RN Unavailable [phone] Encounter Details Date Type Department Care Team (Late st Contact Info) Description 02/02/2023 Abstract [facility] [address] [place] [phone] Roby Maurer MD [address] [place] [address] Social History Tobacco Use Types Packs/Day Years Used Date Smoking Tobacco: Never Smokeless Tobacco: Never Alcohol Use Standard Drinks/Week Comments Yes 3 (1 standard drink = 0.6 oz pure [...] How often do you attend chur or rastafarian services? More than 4 times per year 11/07/2022 Do you belong to any clubs o r organizations such as spiritism groups, unions, fraternal or athletic groups, or [...] Recorded Patient Health Questionnaire-2 Score 0 11/08/2022 [facility] of Occupat ional Health - Occupational Stress [...] place to sleep or slept in a skilled nursing (including now)? No 11/07/2022 Education Answer Date Recorded What is the highest level of school you have completed or the highest degree you have received? 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 No / Unsure 01/19/2023 10:15 AM EDT documented as of this encounter Plan of Treatment Upcoming Encounters Date Type Department Care Team (Late st Contact Info) Description 02/27/2025 2:15 PM EST Procedure Visit [facility] [address] [place] [phone] Monse Conrad, MEDICAL TECHNOLOGIST MICROBIOLOGY [address] [facility] [address] [id number] 04/21/2025 4:00 PM EST Office Visit [facility] [address] [facility] [address] [place] [address] Oxana Kelsey, [facility] [address] [facility] [address] [place] [address] documented as of this encounter Visit Diagnoses Not on filedocumented in this encounter Care Teams Lead Software Qa Engineer Relationship Specialty Start Date End Date Kyle Colon DO [address] [facility] [address] [place] [address] PCP - [facility] 07/09/22 Unallocated, Lashawn Cortez MD [address] [place] [address] PCP - General Family Medicine 04/26/23 06/22/23 Kyle Colon DO [address] [facility] [address] [place] [address] PCP - General Family Medicine 06/23/23 Judith Mobley LPN Licensed Practical Nurse Family Medicine 02/21/24 06/10/24 Claudia Cage LISW-S [address] [facility] [address] [place] [address] Interactive Web Developer Behavioral Health 04/17/24 Oxana Kelsey, CHRISTIANOHNP- [address] [facility] [address] [place] [phone] Nurse Practitioner Behavioral Health 06/05/24 Clair Osborne, RN [address] [place] [address] Licensed Practical Nurse Family Medicine 06/10/24 06/24/24 documented as of this encounter
--- OUTSIDE RECORDS SUMMARY | 2024-12-27 18:43 | XMS_ITS | Clinical Summary ---
Author Organization [facility] Address [address] [place] [address] Care Team Providers Care Stock Worker Name Role Phone Kyle Colon DO Unavailable [phone] Kyle Colon DO Primary Care Provider [phone] Claudia Cage Unavailable Oxana Kelsey PMHNP- Unavailable Allergies Active Allergy Reactions Criticality Noted Date Comments Cefaclor Hives,Itching,Unknown 10/23/2015 Atomoxetine Other 06/05/2024 Increased irritability Sulfa Antibiotics Hives,Rash,Unknown Low 10/27/2017 Sulfacetamide Hives 01/26/2021 Sulfites Unknown 12/26/2023 Other Reaction(s): Unknown Reaction Vancomycin Unknown 06/18/2020 Other Reaction(s): Unknown Reaction Bupropion Hallucinations 06/05/2024 Increased anger Medications albuterol HFA (Ventolin HFA) 90 mcg/act inhalerIndication s:Exercise-induce d asthma (HCC) Inhale 2 puffs every 6 (six) hours if needed for wheezing or shortness of breath 1 g 3 09/27/19 24 Active topiramate (Topamax) 100 MG tabletIndications :Intractable chronic migraine without aura and without status migrainosus Take 2 tablets (200 mg) by mouth at bedtime 180 tablet 3 03/20/20 24 025 Active SUMAtriptan (Imitrex) 100 MG tabletIndications :Intractable chronic migraine without aura and without status migrainosus Take 1 tablet (100 mg) by mouth 1 (one) time if needed for migraine (may repeat x1 max 2 times a day and 2 times a week) 9 tablet 11 11/16/19 25 Active DULoxetine (Cymbalta) [address] capsuleIndication s:Severe episode of recurrent major depressive disorder, without psychotic features (HCC),DELPHINE (generalized anxiety disorder) Take 1 capsule (30 mg) by mouth Daily Do not crush or chew. 30 capsule 5 12/05/19 25 025 Active methylphenidate (Ritalin) 20 MG tabletIndications :Attention deficit hyperactivity disorder (ADHD), predominantly inattentive type Take 1 tablet (20 mg) by mouth at noon. Take before meals 30 tablet 12/05/19 25 025 Active methylphenidate ER (Concerta) 36 MG CR tabletIndications :Attention deficit hyperactivity disorder (ADHD), predominantly inattentive type Take 2 tablets (72 mg) by mouth in the morning. Do not crush, chew, or split. 60 tablet 12/05/19 25 025 Active amoxicillin-clavu lanate (Augmentin) 875-125 MG tabletIndications :Salivary gland infection Take 1 tablet (875 mg) by mouth in the morning and 1 tablet (875 mg) before bedtime. Do all this for 10 days. 20 tablet 12/18/19 25 025 Active methylPREDNISolon e (Medrol Dospak) 4 MG tabletsIndication s:Pharyngitis, unspecified etiology Follow schedule on package instructions 21 tablet 12/18/19 25 Active pseudoephedrine-D M-GG 60-15-400 MG tabletIndications :Acute cough,Nasal congestion Take 1 tablet by mouth 4 (four) times a day as needed (cough and congestion) for up to 10 days 40 tablet 12/18/19 25 025 Active DULoxetine (Cymbalta) [address] capsuleIndication s:Severe episode of recurrent major depressive disorder, without psychotic features (HCC),DELPHINE (generalized anxiety disorder) Take 1 capsule (30 mg) by mouth Daily Do not crush or chew. 30 capsule 2 11/07/19 25 025 Discontin ued(Reord er) methylphenidate ER (Concerta) 36 MG CR tabletIndications :Attention deficit hyperactivity disorder (ADHD), predominantly inattentive type Take 2 tablets (72 mg) by mouth in the morning. Do not crush, chew, or split. 60 tablet 11/07/19 25 025 Discontin ued(Reord er) methylphenidate (Ritalin) 20 MG tabletIndications :Attention deficit hyperactivity disorder (ADHD), predominantly inattentive type Take 1 tablet (20 mg) by mouth at noon. Take before meals 30 tablet 11/07/19 25 025 Discontin ued(Reord er) Active Problems Problem Noted Date Diagnosed Date Cervical dystonia 08/05/2024 Myalgia of auxiliary muscles, head and neck 06/10 Severe episode of recurrent major depressive disorder, without psychotic features 06/05/2024 Fibromyalgia 06/05/2024 Lumbosacral radiculopathy at S1 09/11/2023 ADHD 11/08/2022 Migraine headache 11/08/2022 Attention deficit hyperactiv ity disorder (ADHD), predominantly inattentive type 09/09/2022 Exercise-induced asthma 09/09/2022 Lymphedema 09/09/2022 DELPHINE (generalized anxiety disorder) 09/23/2020 Narcolepsy 03/30/2016 Resolved Problems Problem Noted Date Diagnosed Date Resolved Date Nausea and vomiting 01/17/2024 06/05/19 25 Acute postoperative pain 01/17/2024 Dislocation of jaw 11/09/2023 Dyspnea 09/27/2023 06/05/2024 Edema, peripheral 09/27/2023 06/05/2024 Arthritis of temporomandibular joint 11/08/2022 06/30/2023 Mild episode of recurrent ma akira depressive disorder 11/08/2022 11/08/2022 Poor posture 11/08/2022 11/08/2022 Somatic dysfunction of head region 11/08/2022 11/08/2022 Somatic dysfunction of cervical region 11/08/2022 11/08/2022 Somatic dysfunction of thoracic region 11/08/2022 11/08/2022 Trapezius muscle spasm 11/08/202206/29 Asthma 11/08/2022 06/05/2024 Insomnia 11/08/2022 11/08/2022 Anxiety 09/09/2022 06/05/2024 Atrophic vaginitis 09/09/2022 4 Chronic fatigue 09/09/2022 11/08/2022 Dysmenorrhea 09/09/2022 11/08/2022 Post traumatic stress disorder 09/09/2022 11/08/2022 Migraine with aura and witho ut status migrainosus, not intractable 09/09/2022 11/08/2022 Irregular menses 09/09/2022 11/08/2022 Non-seasonal allergic rhinitis due to pollen 11/08/2022 Primary narcolepsy without cataplexy 09/09/2022 11/08/2022 Psychophysiological insomnia 09/09/2022 11/08/2022 Major depressive disorder wi th single episode, in partial remission 11/13/2020 06/05/2024 Posttraumatic stress disorder 11/13/2020 11/08/2022 Attention deficit hyperactiv ity disorder, predominantly inattentive type 10/15/2020 3 Abdominal pain 06/18/2020 11/08/2022 Abnormal vaginal bleeding 06/10/2020 Chronic fatigue syndrome 06/26/2019 Migraine with aura 09/25/2017 3 Calculus of gallbladder with acute on chronic cholecystitis without obstruction 03/28/20172022 Right upper quadrant pain 03/28/2017 Refractory migraine 03/13/2017 11/09/19 23 Insomnia related to another mental disorder 03/13/2017 11/08/2022 Encounters Date Type Department Care Team Description 12/17/2024 4:40 PM EDT Office Visit [facility] [address] [place] [address] Opal Crane, INVESTMENT BANKER Salivary gland infection (Primary Dx); Pharyngitis, unspecified etiology; Acute cough; Nasal congestion 12/17/2024 Travel 12/04/2024 2:00 PM EDT Telemedicine [facility] [address] [place] [address] Oxana Kelsey PMHNP-BC Severe episode of recurrent major depressive disorder, without psychotic features (HCC); DELPHINE (generalized anxiety disorder) ; Attention deficit hyperactivity disorder (ADHD), predominantly inattentive type 11/27/2024 Travel 11/15/2024 2:15 PM EDT Procedure Visit [facility] [address] [facility] [address] [place] [phone] Monse Conrad NP Intractable chronic migraine without aura and without status migrainosus (Primary Dx); Cervical dystonia 11/15/2024 Bamboo flowsheet [facility] [address] [place] [address] Monse Conrad NP 11/15/2024 Travel 11/06/2024 2:30 PM EDT Office Visit [facility] [address] [facility] [address] [place] [phone] Oxana Kelsey HNP-BC Severe episode of recurrent major depressive disorder, without psychotic features (HCC); DELPHINE (generalized anxiety disorder) ; Attention deficit hyperactivity disorder (ADHD), predominantly inattentive type ; Encounter for drug screening; High risk medication use 11/06/2024 Bamboo flowsheet [facility] [address] [facility] [address] [place] [address] Oxana Kelsey PMHNP-BC 11/06/2024 Travel 10/30/2024 Telephone [facility] [address] [facility] [address] [place] [address] Monse Conrad NP Appointment 10/09/2024 4:00 PM EDT Office Visit [facility] [address] [facility] [address] [place] [address] Oxana Kelsey PMHNP-BC DELPHINE (generalized anxiety disorder) ; Attention deficit hyperactivity disorder (ADHD), predominantly inattentive type ; Severe episode of recurrent major depressive disorder, without psychotic features (HCC) 10/09/2024 Bamboo flowsheet [facility] [address] [facility] [address] [place] [address] Oxana Kelsey, PMHNP- 10/09/2024 Travel 10/01/2024 Refill [facility] [address] [facility] [address] [place] [address] Roby Maurer MD Attention deficit hyperactivity disorder (ADHD), predominantly inattentive type from Last 3 Months Immunizations Immunization Administration Dates Next Due Influenza, High Dose Seasona l, Preservative Free 01/13/2020 Influenza, injectable, quadrivalent 2018 Influenza, injectable, quadr ivalent, preservative free 01/13/2020,2018,01/09/2017,2013 Family History Medical History Relation Name Comments Asthma Brother Ty Drug abuse Brother Ty Hypertension Brother Ty Hearing loss Maternal Grandfather Jovi Breast cancer Maternal Grandmother Arthritis Mother Paloma COPD Mother Paloma Depression Mother Paloma Hypertension Mother Paloma Kidney disease Mother Paloma Miscarriages / Stillbirths Mother Paloma Diabetes Paternal Grandmother Ladan Relation Name Status Comments Brother Ty Alive Daughter Alive Father Maternal Grandfather Jovi Alive Maternal Grandmother Mother Paloma Alive Paternal Grandmother Ladan Alive Social History Tobacco Use Types Packs/Day Years Used Date Smoking Tobacco: Never Smokeless Tobacco: Never Tobacco Cessation:Counseling Given: Not Answered Alcohol Use Standard Drinks/Week Comments Yes 1 [...] often do you attend chur ch or denominational services? More than 4 times per year 11/07/2022 Do you belong to any clubs o r organizations such as sikhism groups, unions, fraternal or athletic groups, or [...] Recorded Patient Health Questionnaire-2 Score 2 07/03/2024 [facility] - Occupational Stress Questionnaire Answer Date Recorded [...] place to sleep or slept in a long term (including now)? No 11/07/2022 Education Answer Date [...] Not on file No t on file Last Filed Vital Signs Vital Sign Reading Time Taken Comments Blood Pressure 110/70 11/15/2024 2:30 PM EDT Pulse 76 12/17/2024 4:26 PM EDT Temperature 36.9 C (98.5 F) 12/17/2024 4:26 PM EDT Respiratory Rate 20 08/22/2024 10:19 AM EDT Oxygen Saturation 99% 12/17/2024 4:26 PM EDT Inhaled Oxygen Concentration - - Weight 54.4 kg (120 lb) 11/15/2024 2:30 PM EDT Height 162.6 cm (5' 4 ) 11/15/2024 2:30 PM EDT Body Mass Index 20.6 11/15/2024 2:30 PM EDT Plan of Treatment Upcoming Encounters Date Type Department Care Team (Late st Contact Info) Description 02/27/2025 2:15 PM EST Procedure Visit [facility] [address] [place] [address] Monse Conrad, INVESTMENT BANKER [address] [facility] [address] [place] [address] 04/21/2025 4:00 PM EST Office [facility] [address] [facility] [address] [place] [address] Low Oxana, PMHNP-BC [address] [facility] [address] [place] [address] Health Maintenance Due Date Last Done Comments Influenza Vaccine (#1) 2024 , 01/13/2020, 2018, Additional history exists Pap Smear 08/27/2026 08/28/2023, 08/22/2022 Cervical Cancer Screening 08/27/2028 HPV/Cotest 08/27/2028 08/28/2023, 08/08, 08/10/2021, Additional history exists Procedures Procedure Name Priority Date/Time Associated Diagnosis Comments RAPID COVID 19 ANTIGEN Routine 12/17/2024 4:42 PM EDT Pharyngitis, unspecified etiology RAPID STREP Routine 12/17/2024 4:38 PM EDT Pharyngitis, unspecified etiology POCT RAPID DRUG SCREEN, URINE Routine 11/06/2024 2:25 PM EDT Encounter for drug screening High risk medication use THINPREP TIS PAP AND HPV MRNA E6/E7 Routine 08/28/2023 4:04 PM EDT Screening for malignant neoplasm of cervix Encounter for gynecological examination without abnormal finding from Last 3 Months or Most Recently Relevant to Health Maintenance Results * RAPID COVID 19 ANTIGEN (12/17/2024 4:42 PM EDT) COVID 19 RESULT OP neg Negative Nasal 12/17/2024 4:42 PM EDT us Boaz Ash DO POINT OF CARE TEST ENTER/ED IT ORDERABLES Final Result * RAPID STREP (12/17/2024 4:38 PM EDT) RESULT neg Negative Throat 12/17/2024 4:38 PM EDT us Boaz Ash DO POINT OF CARE TEST ENTER/ED IT ORDERABLES Final Result * Rapid drug screen, urine (11/06/2024 2:25 PM EDT) AMPHETAMINES Negative BARBITURATES Negative BUPRENORPHINE Negative BENZODIAZEPINES Negative COCAINE METABOLITE Negative ECSTASY Negative METHADONE Negative OPIATES Negative OXYCODONE Negative PHENCYCLIDINE Negative TRICYCLICS Negative THC Negative MORPHINE Negative METHAMPHETAMINE neg Urine Urine specimen obtained by clean catch procedure / Unknown 11/06/2024 2:25 PM EDT us Oxana Kelsey PMHNP- POINT OF CARE TEST ENTER/EDIT ORDERABLES Edited Result - Final * THINPREP TIS PAP AND HPV MRNA E6/E7 (08/28/2023 4:04 PM EDT) CLINICAL INFORMATION [facility] Comment:None given LMP [facility] Comment:NONE GIVEN PREV. PAP [facility] Comment:NONE GIVEN PREV. BX [facility] Comment:NONE GIVEN SOURCE [facility] Comment:None given STATEMENT OF ADEQUACY [facility] Comment: Satisfactory for evaluation. Endocervical/transformation zone component present. INTERPRETATION/RESU LT [facility] Comment: Cytology Results: Negative for intraepithelial lesion or malignancy. COMMENT [facility] Comment: This Pap test has been evaluated with computer assisted technology. MANAGER ANDROID [facility] Comment: ASD, CT(ASCP) screening location: [facility], [address] [place] [address], [place] [address]. (ALWAYS MESSAGE) [facility] Comment: EXPLANATORY NOTE: The Pap is a screening test for cervical cancer. It is not a diagnostic test and is subject to false negative and false positive results. It is most reliable when a satisfactory sample, regularly obtained, is submitted with relevant clinical findings and history, and when the Pap result is evaluated along with historic and current clinical information. HPV MRNA E6/E7 Not Detected Not Detected [facility] Comment: Methodology: It Disaster Recovery Manager-Mediated Amplification This assay detects E6/E7 viral messenger RNA (mRNA) from 14 high-risk HPV types (16,18,31,33,35,39,45,51,52,56,58,59,66,68). Cervical sources are required for HPV testing. If a vaginal source from a patient who has had a total hysterectomy with removal of cervix was submitted, please contact the testing laboratory for alternative testing options. For additional information, please refer to [email or web address]faq/FNB219x3 (This link if provided for information/ educational purposes only.) Swab 08/28/2023 4:04 PM EDT 08/29/2023 2:55 AM EDT Narrative Resulting Agency Comment Performing Organization Information Site ID: [id number] Name: [facility] Address: [address] [place] [address], [address] [place] [phone] Director: Thor Trevino MD Ailyn Malhotra MD LAB CYTOLOGY ORDERABLES Final Result [facility] from Last 3 Months or Most Recently Relevant to Health Maintenance Insurance [facility] MEDICA[employer] Care Teams Stock Worker Relationship Specialty Start Date End Date Kyle Colon DO [address] [place] [address] PCP - [facility] 07/09/22 Kyle Colon DO [address] [place] [address] PCP - General Family Medicine 06/23/23 Claudia Cage LISW-S [address] [place] [address] Graduation Coach Behavioral Health 04/17/24 Oxana Kelsey PMHNP- [address] [facility] [address] [place] [address] Nurse Practitioner Behavioral Health 06/05/24
--- OUTSIDE RECORDS SUMMARY | 2024-12-27 18:43 | XMS_ITS | Encounter Summary ---
Author Organization [facility] Address [address] [facility] [place] [address] Care Team Providers Care Ironworker Wire Fence Erector Name Role Phone Kyle Colon DO Unavailable [phone] Kyle Colon DO Primary Care Provider [phone] Judith Mobley LPN Unavailable Unavailable Claudia Cage Unavailable Oxana Kelsey PMP- Unavailable Clair Osborne RN Unavailable Encounter Details Date Type Department Care Team (Late st Contact Info) Description 01/10/2024 Abstract [facility] [address] [facility] [address] [place] [address] Kyle Colon, DO [address] [facility] [address] [place] [address] Social History Tobacco Use Types Packs/Day Years [...] week 11/07/2022 How often do you attend [facility] or restoration services? More than 4 times per year 11/07/2022 Do you belong to any clubs o r organizations such as mormon groups, unions, fraternal or athletic groups, or [...] Recorded Patient Health Questionnaire-2 Score 0 10/03/2023 [facility] of Occupat ional Health - Occupational Stress [...] place to sleep or slept in a usp (including now)? No 11/07/2022 Education Answer Date [...] Neurology [address] [place] [address] Monse Conrad NP [address] [facility] [address] [place] [address] 04/21/2025 4:00 PM EST Office Visit [facility] [address] [facility] [address] [place] [phone] Oxana Kelsey, [facility] [address] [facility] [address] [place] [address] documented as of this encounter Visit Diagnoses Not on filedocumented in this encounter Additional Health Concerns Assessment Noted Time PHQ-9 Depression Total Score: 12 024 2:18 PM EDT documented as of this encounter Care Teams Ironworker Wire Fence Erector Relationship Specialty Start Date End Date Kyle Colon DO [address] [facility] [address] [place] [address] PCP - [facility] 07/09/22 Kyle Colon DO [address] [facility] [address] [place] [address] PCP - General Family Medicine 06/23/23 Judith Mobley LPN Licensed Practical Nurse Family Medicine 02/21/24 06/10/24 Claudia Cage LISW-S [address] [facility] [address] [place] [address] Business Analysis Professional Behavioral Health 04/17/24 Oxana Kelsey, [facility] [address] [facility] [address] [place] [address] Nurse Practitioner Behavioral Health 06/05/24 Clair Osborne, RN [address] [place] [address] Licensed Practical Nurse Family Medicine 06/10/24 06/24/24 documented as of this encounter
--- OUTSIDE RECORDS SUMMARY | 2024-12-27 18:43 | XMS_ITS | Encounter Summary ---
Author Organization [facility] Address [address] [facility] [place] [address] Care Team Providers Care Religious Studies Professor Name Role Phone Kyle Colon DO Unavailable [phone] Kyle Colon DO Primary Care Provider [phone] Judith Mobley LPN Unavailable Unavailable Claudia Cage Unavailable [phone] Oxana Kelsey PMP- Unavailable Clair Osborne RN Unavailable Encounter Details Date Type Department Care Team (Late st Contact Info) Description 03/01/2024 Abstract [facility] [address] [facility] [address] [place] [phone] Kyle Colon, DO [address] [facility] [address] [place] [address] Social History Tobacco Use Types Packs/Day Years [...] week 11/07/2022 How often do you attend [facility] or amish services? More than 4 times per year 11/07/2022 Do you belong to any clubs o r organizations such as congregational groups, unions, fraternal or athletic groups, or [...] Recorded Patient Health Questionnaire-2 Score 0 10/03/2023 [facility] of Occupat ional Health - Occupational Stress [...] place to sleep or slept in a mcc (including now)? No 11/07/2022 Education Answer Date [...] Neurology [address] [place] [address] Monse Conrad NP [address] [facility] [address] [place] [address] 04/21/2025 4:00 PM EST Office Visit [facility] [address] [facility] [address] [place] [phone] Oxana Kelsey, [facility] [address] [facility] [address] [place] [address] documented as of this encounter Visit Diagnoses Not on filedocumented in this encounter Additional Health Concerns Assessment Noted Time PHQ-9 Depression Total Score: 12 024 2:18 PM EDT documented as of this encounter Care Teams Religious Studies Professor Relationship Specialty Start Date End Date Kyle Colon DO [address] [facility] [address] [place] [address] PCP - [facility] 07/09/22 Kyle Colon DO [address] [facility] [address] [place] [address] PCP - General Family Medicine 06/23/23 Judith Mobley LPN Licensed Practical Nurse Family Medicine 02/21/24 06/10/24 Claudia Cage LISW-S [address] [facility] [address] [place] [address] Spinner Tender Behavioral Health 04/17/24 Oxana Kelsey, [facility] [address] [facility] [address] [place] [address] Nurse Practitioner Behavioral Health 06/05/24 Clair Osborne, RN [address] [place] [address] Licensed Practical Nurse Family Medicine 06/10/24 06/24/24 documented as of this encounter
--- OUTSIDE RECORDS SUMMARY | 2024-12-27 18:43 | XMS_ITS | Encounter Summary ---
Author Organization [facility] Address [address] [facility] [place] [address] Care Team Providers Care Pattern Assembler Name Role Phone Kyle Colon DO Unavailable [phone] Kyle Colon DO Primary Care Provider [phone] Judith Mobley LPN Unavailable Unavailable Claudia Cage Unavailable Oxana Kelsey PMP- Unavailable Clair Osborne RN Unavailable Encounter Details Date Type Department Care Team (Late st Contact Info) Description 03/19/2024 [facility] [address] [facility] 230 [place] [phone] Kyle Colon, DO [address] [facility] 230 [place] [address] Social History Tobacco Use Types Packs/Day Years [...] week 11/07/2022 How often do you attend [facility] or christian services? More than 4 times per year 11/07/2022 Do you belong to any clubs o r organizations such as jewish groups, unions, fraternal or athletic groups, or [...] Recorded Patient Health Questionnaire-2 Score 0 10/03/2023 [facility] [place] of Occupat ional Health - Occupational Stress [...] place to sleep or slept in a jail (including now)? No 11/07/2022 Education Answer Date [...] Neurology [address] [place] [address] Monse Conrad NP 5319 [facility] [address] [place] [address] 04/21/2025 4:00 PM EST Office Visit [facility] [address] [facility] 160 [place] [phone] Oxana Kelsey, [facility] [address] [facility] 160 [place] [address] documented as of this encounter Visit Diagnoses Not on filedocumented in this encounter Additional Health Concerns Assessment Noted Time PHQ-9 Depression Total Score: 12 024 2:18 PM EDT documented as of this encounter Care Teams Pattern Assembler Relationship Specialty Start Date End Date Kyle Colon DO [address] [facility] 230 [place] [address] PCP - [facility] 07/09/22 Kyle Colon DO [address] [facility] 230 [place] [address] PCP - General Family Medicine 06/23/23 Judith Mobley LPN Licensed Practical Nurse Family Medicine 02/21/24 06/10/24 Claudia Cage LISW-S [address] [facility] 300 [place] [address] Coal Inspector Behavioral Health 04/17/24 Oxana Kelsey, [facility] [address] [facility] 160 [place] [address] Nurse Practitioner Behavioral Health 06/05/24 Clair Osborne, RN [address] [place] [place] [address] Licensed Practical Nurse Family Medicine 06/10/24 06/24/24 documented as of this encounter
--- OUTSIDE RECORDS SUMMARY | 2024-12-27 18:43 | XMS_ITS | Encounter Summary ---
Author Organization [facility] Address [address] [place] [address] Care Team Providers Care Swine Nutritionist Name Role Phone Kyle Colon DO Unavailable [phone] Kyle Colon DO Primary Care Provider [phone] Judith Mobley LPN Unavailable Unavailable Claudia Cage Unavailable Oxana Kelsey PMP- Unavailable Clair Osborne RN Unavailable Encounter Details Date Type Department Care Team (Late st Contact Info) Description 01/09/2024 Abstract [facility] [address] [facility] [address] [place] [phone] Alfredito Hobson DO [address] [facility] 210 [place] [address] Social History Tobacco Use Types Packs/Day Years [...] week 11/07/2022 How often do you attend [facility] or protestant services? More than 4 times per year 11/07/2022 Do you belong to any clubs o r organizations such as yazidism groups, unions, fraternal or athletic groups, or [...] Recorded Patient Health Questionnaire-2 Score 0 10/03/2023 [facility] of Occupat ional Health - Occupational Stress [...] place to sleep or slept in a assisted (including now)? No 11/07/2022 Education Answer Date [...] Neurology [address] [place] [address] Monse Conrad NP 5319 [facility] [address] [place] [address] 04/21/2025 4:00 PM EST Office Visit [facility] [address] [facility] 160 [place] [phone] Oxana Kelsey, [facility] 112 [facility] 160 [place] [address] documented as of this encounter Visit Diagnoses Not on filedocumented in this encounter Additional Health Concerns Assessment Noted Time PHQ-9 Depression Total Score: 12 024 2:18 PM EDT documented as of this encounter Care Teams Swine Nutritionist Relationship Specialty Start Date End Date Kyle Colon DO [address] [facility] 230 [place] [address] PCP - [facility] 07/09/22 Kyle Colon DO [address] [facility] 230 [place] [address] PCP - General Family Medicine 06/23/23 Judith Mobley LPN Licensed Practical Nurse Family Medicine 02/21/24 06/10/24 Claudia Cage LISW-S [address] [facility] 300 [place] [address] B2B Outside Sales Representative Behavioral Health 04/17/24 Oxana Kelsey, [facility] [address] [facility] 160 [place] [address] Nurse Practitioner Behavioral Health 06/05/24 Clair Osborne, RN [address] [place] [address] Licensed Practical Nurse Family Medicine 06/10/24 06/24/24 documented as of this encounter
--- OUTSIDE RECORDS SUMMARY | 2024-12-27 18:44 | XMS_ITS | Encounter Summary ---
Author Organization [facility] Address [address] [facility] [place] [address] Care Team Providers Care Ornamental Bronze Worker Name Role Phone Kyle Colon DO Unavailable [phone] Kyle Colon DO Primary Care Provider [phone] Judith Mobley LPN Unavailable Unavailable Claudia Cage Unavailable [phone] Oxana Kelsey PMP- Unavailable Clair Osborne RN Unavailable Encounter Details Date Type Department Care Team (Late st Contact Info) Description 10/05/2023 Abstract [facility] 230 [address] [facility] 230 [place] [address] Kyle Colon, DO [address] [facility] 230 [place] [address] Social History Tobacco Use Types Packs/Day Years [...] week 11/07/2022 How often do you attend [facility] or zoroastrian services? More than 4 times per year [...] Recorded Patient Health Questionnaire-2 Score 0 10/03/2023 [facility] [place] of Occupat ional Health - Occupational Stress [...] place to sleep or slept in a longterm (including now)? No 11/07/2022 Education Answer Date [...] Neurology [address] [place] [address] Mnose Conrad NP 5319 [facility] [address] [place] [address] 04/21/2025 4:00 PM EST Office Visit [facility] [address] [facility] 160 [place] [phone] Oxana Kelsey, [facility] 112 [facility] 160 [place] [address] documented as of this encounter Visit Diagnoses Not on filedocumented in this encounter Additional Health Concerns Assessment Noted Time PHQ-9 Depression Total Score: 12 024 2:18 PM EDT documented as of this encounter Care Teams Ornamental Bronze Worker Relationship Specialty Start Date End Date Kyle Colon DO [address] [facility] 230 [place] [address] PCP - [facility] 07/09/22 Kyle Colon DO [address] [facility] 230 [place] [address] PCP - General Family Medicine 06/23/23 Judith Mobley LPN Licensed Practical Nurse Family Medicine 02/21/24 06/10/24 Claudia Cage LISW-S [address] [facility] 300 [place] [address] Building Serviceman Behavioral Health 04/17/24 Oxana Kelsey, [facility] [address] [facility] 160 [place] [address] Nurse Practitioner Behavioral Health 06/05/24 Clair Osborne, RN [address] [place] [address] Licensed Practical Nurse Family Medicine 06/10/24 06/24/24 documented as of this encounter
--- OUTSIDE RECORDS SUMMARY | 2024-12-27 18:44 | XMS_ITS | Encounter Summary ---
Author Organization [facility] Address [address] [facility] [place] [address] Care Team Providers Care Inspector Assemblies And Installations Name Role Phone Kyle Colon DO Unavailable [phone] Kyle Colon DO Primary Care Provider [phone] Judith Mobley LPN Unavailable Unavailable Claudia Cage Unavailable Oxana Kelsey PMP- Unavailable Clair Osborne RN Unavailable [phone] Encounter Details Date Type Department Care Team (Late st Contact Info) Description 05/01/2024 Abstract [facility] 230 [address] [facility] 230 [place] [address] Kyle Colon, DO [address] [facility] 230 [place] [address] Social History Tobacco Use Types Packs/Day Years [...] week 11/07/2022 How often do you attend [facility] or scientologist services? More than 4 times per year 11/07/2022 Do you belong to any clubs o r organizations such as gnosticist groups, unions, fraternal or athletic groups, or [...] Date Recorded Patient Health Questionnaire-2 Score 0 04/11/2024 [facility] of Occupat ional Health - Occupational Stress [...] Neurology [address] [place] [address] Monse Conrad NP 5319 [facility] [address] [place] [address] 04/21/2025 4:00 PM EST Office Visit [facility] [address] [facility] 160 [place] [address] Oxana Kelsey, [facility] [address] [facility] 160 [place] [address] documented as of this encounter Visit Diagnoses Not on filedocumented in this encounter Additional Health Concerns Assessment Noted Time PHQ-9 Depression Total Score: 12 024 2:18 PM EDT documented as of this encounter Care Teams Inspector Assemblies And Installations Relationship Specialty Start Date End Date Kyle Colon DO [address] [facility] 230 [place] [address] PCP - [facility] 07/09/22 Kyle Colon DO [address] [facility] 230 [place] [address] PCP - General Family Medicine 06/23/23 Judith Mobley LPN Licensed Practical Nurse Family Medicine 02/21/24 06/10/24 Claudia Cage LISW-S [address] [facility] 300 [place] [address] Concrete Batching Plant Operator Behavioral Health 04/17/24 Oxana Kelsey, [facility] [address] [facility] 160 [place] [address] Nurse Practitioner Behavioral Health 06/05/24 Clair Osborne, RN [address] [place] [address] Licensed Practical Nurse Family Medicine 06/10/24 06/24/24 documented as of this encounter
--- OUTSIDE RECORDS SUMMARY | 2024-12-27 18:44 | XMS_ITS | Encounter Summary ---
Author Organization [facility] Address [address] [place] [address] Care Team Providers Care Chin Strap Sewer Name Role Phone Kyle Colon DO Unavailable [phone] Source Comments In the event this information is protected by the Federal Confidentiality of Alcohol and Drug AbusePatient Records regulations: The Federal rules restrict any use of the information to criminally investigate or prosecute any alcohol or drug abuse patient.[facility] Encounter Details Date Type Department Care Team (Late st Contact Info) Description 09/03/2022 Patient Msg Vascular Medicine [address] [id number] Romulo Samaniego III, MD Your visit Social History Tobacco Use Types Packs/Day Years Used Date Smoking Tobacco: Never Smokeless Tobacco: Never Alcohol Use Standard Drinks/Week Comments Yes 2 (1 standard drink = 0.6 oz pur e alcohol) Area Deprivation Index Answer Date Gustavo rded National Score (1-100), lower number is lower ri sk 91 08/31/2022 State Score (1-10), lower number is lower risk 9 08/31/2022 Data from: https://www.neighborhoodatlas.medicine.[facility].edu/. Last address used for calculation [address] [facility] 08/31/2022 Comments Unknown Sex and Gender Information Value Date Recorded Sex Assigned at Female 08/27/2022 1:29 PM EDT Legal Sex Female 3:43 PM EDT Gender Identity Female 08/27/2022 1:29 PM EDT Sexual Orientation Straight 08/27/2022 1: 29 PM EDT documented as of this encounter Plan of Treatment Not on file documented as of this encounter Visit Diagnoses Not on filedocumented in this encounter Care Teams Chin Strap Sewer Relationship Specialty Start Date End Date Kyle Colon DO Family Medicine 10/02/23 documented as of this encounter
--- OUTSIDE RECORDS SUMMARY | 2024-12-27 18:44 | XMS_ITS | Encounter Summary ---
Author Organization [facility] Address [address] [place] [address] Care Team Providers Care Injection Specialist Name Role Phone Kyle Colon DO Unavailable [phone] Kyle Colon DO Primary Care Provider + [phone] Claudia Cage Unavailable [phone] Oxana Kelsey [facility] Unavailable Reason for Referral * Injection (Stat) - Denied Specialty Diagnoses / Procedures Referred By Contkaelyn t Referred To Contact Neurology Diagnoses Cervical dystonia Intractable chronic migraine without aura and without status migrainosus Monse Conrad NP [address] [place] [address] Phone: tel: fax: Monse Conrad NP [address] [facility] 310 [place] [address] Phone: tel: fax: Referral ID Status Reason Start Date Expiration Date V isits Requested Visits Authorized [id number] Denied Specialty Services Required 07/30/2024 01/26/2025 1 0 Encounter Details Date Type Department Care Team (Late st Contact Info) Description 07/30/2024 [facility] [address] [place] [address], [place] [phone] Monse Conrad, LUMBER STICKER [address] [place], [place] [phone] Cervical dystonia (Primary Dx); Intractable chronic migraine without aura and without status migrainosus Social History Tobacco Use Types Packs/Day Years [...] How often do you attend chur or restorationist services? More than 4 times per year 11/07/2022 Do you belong to any clubs o r organizations such as roman catholic groups, unions, fraternal or athletic groups, or [...] Recorded Patient Health Questionnaire-2 Score 2 07/03/2024 [facility] of Occupat ional Health - Occupational [...] money to buy more. Never true 11/08/19 Within the past 12 months, t he [...] place to sleep or slept in a long-term (including now)? No 11/07/2022 Education Answer Date [...] Neurology [address] [place] [address] Monse Conrad, LUMBER STICKER 5319 [facility] [address] [address] 04/21/2025 4:00 PM EST Office Visit [facility] 112 [facility] 160 [place] [phone] Oxana Kelsey [facility] 112 [facility] 160 [place] [phone] Scheduled Referrals Name Type Priority Associated Diagnoses Orde r Schedule Ambulatory Referral for Botox Outpatient Referral STAT Cervical dystonia Intractable chronic migraine without aura and without status migrainosus Expected: 07/30/2024 (Approximate), Expires: 01/29/2025 documented as of this encounter Visit Diagnoses Diagnosis Cervical dystonia- Primary Spasmodic torticollis Intractable chronic migraine without aura and without status migrainosus documented in this encounter Additional Health Concerns Assessment Noted Time PHQ-9 Depression Total Score: 4 07/04/19 25 3:46 PM EDT documented as of this encounter Care Teams Injection Specialist Relationship Specialty Start Date End Date Kyle Colon DO [address] [place] [address] PCP - [facility] 07/09/22 Kyle Colon DO [address] [place] [address] PCP - General Family Medicine 06/23/23 Claudia Cage LISW-S [address] [place] [address] Drywall Foreman Behavioral Health 04/17/24 Oxana Kelsey, [facility]- 112 [facility] 160 [place] [address] Nurse Practitioner Behavioral Health 06/05/24 documented as of this encounter
--- OUTSIDE RECORDS SUMMARY | 2024-12-27 18:44 | XMS_ITS | Encounter Summary ---
Author Organization [facility] Address [address] [facility] [place] [address] Care Team Providers Care Animal Feeder Name Role Phone Kyle Colon DO Unavailable [phone] Kyle Colon DO Primary Care Provider + [phone] Claudia Cage Unavailable [phone] Oxana Kelsey [facility]- Unavailable Encounter Details Date Type Department Care Team (Late st Contact Info) Description 06/25/2024 [facility] [address] [facility] [facility] [address] [place] [address] Loreta Keene MA Palpitations; Tachycardia Social History Tobacco Use Types Packs/Day Years [...] week 11/07/2022 How often do you attend [facility] or episcopalian services? More than 4 times per year [...] Answer Date Recorded Patient Health Questionnaire-2 Score 6 06/05/2024 [facility] of Occupat ional Health - [...] 02/27/2025 2:15 PM EST Procedure Visit [facility] [address] [place] [address] Monse Conrad, ROAD SIGN INSTALLER [address] [facility] [address] [place], [place] [address] 04/21/2025 4:00 PM EST Office Visit [facility] [address] [place] [address] Oxana Kelsey, [facility] 112 [facility] 160 [place] [address] documented as of this encounter Procedures Procedure Name Priority Date/Time Associated Diagnosis Comments AMB REFERRAL TO CARDIOLOGY Routine 06/25/2024 8:27 AM EDT Palpitations Tachycardia documented in this encounter Results * Ambulatory referral to Cardiology (06/25/2024 8:27 AM EDT) us Kyle Colon DO OUTPATIENT REFERRAL ORDERA BLES Final Result documented in this encounter Visit Diagnoses Diagnosis Palpitations Tachycardia Unspecified tachycardia documented in this encounter Additional Health Concerns Assessment Noted Time PHQ-9 Depression Total Score: 24 025 1:33 PM EST documented as of this encounter Care Teams Animal Feeder Relationship Specialty Start Date End Date Kyle Colon DO [address] [facility] 230 [place] [address] PCP - [facility] 07/09/22 Kyle Colon DO [address] [facility] 230 [place] [address] PCP - General Family Medicine 06/23/23 Claudia Cage LISW-S [address] [facility] 300 [place] [address] Materials Handler Behavioral Health 04/17/24 Oxana Kelsey, [facility] 112 [facility] 160 [place] [address] Nurse Practitioner Behavioral Health 06/05/24 documented as of this encounter
--- OUTSIDE RECORDS SUMMARY | 2024-12-27 18:44 | XMS_ITS | Encounter Summary ---
Author Organization [facility] Address [address] [place] [address] Care Team Providers Care Routing Clerk Name Role Phone Kyle Colon DO Unavailable [phone] Source Comments In the event this information is protected by the Federal Confidentiality of Alcohol and Drug AbusePatient Records regulations: The Federal rules restrict any use of the information to criminally investigate or prosecute any alcohol or drug abuse patient.[facility] Encounter Details Date Type Department Care Team (Late st Contact Info) Description 09/04/2022 Patient Msg Vascular Medicine [address] [id number] Romulo Samaniego III, MD Lab tests Social History Tobacco Use Types Packs/Day Years Used Date Smoking Tobacco: Never Smokeless Tobacco: Never Alcohol Use Standard Drinks/Week Comments Yes 2 (1 standard drink = 0.6 oz pur e alcohol) Area Deprivation Index Answer Date Gustavo rded National Score (1-100), lower number is lower ri sk 91 08/31/2022 State Score (1-10), lower number is lower risk 9 08/31/2022 Data from: https://www.neighborhoodatlas.medicine.[facility].edu/. Last address used for calculation [address] [facility] 08/31/2022 Comments Unknown Sex and [...] on filedocumented in this encounter Care Teams Routing Clerk Relationship Specialty Start Date End Date Kyle Colon DO Family Medicine 10/02/23 documented as of this encounter
--- OUTSIDE RECORDS SUMMARY | 2024-12-27 18:44 | XMS_ITS | Encounter Summary ---
Author Organization [facility] Address [address] [place] [address] Care Team Providers Care Associate Director Regulatory Affairs Name Role Phone Kyle Colon DO Unavailable [phone] Source Comments In the event this information is protected by the Federal Confidentiality of Alcohol and Drug AbusePatient Records regulations: The Federal rules restrict any use of the information to criminally investigate or prosecute any alcohol or drug abuse patient.[facility] Encounter Details Date Type Department Care Team (Late st Contact Info) Description 01/05/2024 Patient Msg Vascular Medicine [address] [place], [place] [phone] Rickey Reyez DO [address] [place] [address] Appointment Cancellation Request Social History Tobacco Use Types Packs/Day Years Used Date Smoking Tobacco: Never Smokeless Tobacco: Never Alcohol Use Standard Drinks/Week Comments Yes 2 (1 standard drink = 0.6 oz pur e alcohol) PHQ-2 Answer Date Recorded PHQ-2 score 6 10/04/2023 Area Deprivation Index Answer Date Gustavo rded National Score (1-100), lower number is lower ri sk 91 08/31/2022 State Score (1-10), lower number is lower risk 9 08/31/2022 Data from: https://www.neighborhoodatlas.[facility].edu/. Last address used for calculation [address] 08/31/2022 Comments Unknown Sex and Gender Information [...] on filedocumented in this encounter Care Teams Associate Director Regulatory Affairs Relationship Specialty Start Date End Date Kyle Colon DO Family Medicine 10/02/23 documented as of this encounter
--- OUTSIDE RECORDS SUMMARY | 2024-12-27 18:44 | XMS_ITS | Encounter Summary ---
Author Organization [facility] Address [address] [facility] [place] [address] Care Team Providers Care Acquisition Advisor Name Role Phone Kyle Colon DO Unavailable [phone] Kyle Colon DO Primary Care Provider [phone] Judith Mobley LPN Unavailable Unavailable Claudia Cage Unavailable Oxana Kelsey PMP- Unavailable Clair Osborne RN Unavailable [phone] Encounter Details Date Type Department Care Team (Late st Contact Info) Description 05/01/2024 [facility] [address] [facility] 230 [place] [phone] Kyle Colon, DO [address] [facility] 230 [place] [address] Social History Tobacco Use Types Packs/Day Years [...] week 11/07/2022 How often do you attend [facility] or hindu services? More than 4 times per year [...] Recorded Patient Health Questionnaire-2 Score 0 04/11/2024 [facility] - Occupational Stress [...] Neurology [address] [place] [address] Monse Conrad NP [address] [facility] [address] [place] [address] 04/21/2025 4:00 PM EST Office Visit [facility] [address] [facility] [address] [place] [phone] Oxana Kelsey, [facility] 112 [facility] [address] [place] [address] documented as of this encounter Visit Diagnoses Not on filedocumented in this encounter Additional Health Concerns Assessment Noted Time PHQ-9 Depression Total Score: 12 024 2:18 PM EDT documented as of this encounter Care Teams Acquisition Advisor Relationship Specialty Start Date End Date Kyle Colon DO [address] [facility] [address] [place] [address] PCP - [facility] 07/09/22 Kyle Colon DO [address] [facility] [address] [place] [address] PCP - General Family Medicine 06/23/23 Judith Mobley LPN Licensed Practical Nurse Family Medicine 02/21/24 06/10/24 Claudia Cage LISW-S [address] [facility] [address] [place] [address] Social Psychologist Behavioral Health 04/17/24 Oxana Kelsey, [facility] [address] [facility] [address] [place] [address] Nurse Practitioner Behavioral Health 06/05/24 Clair Osborne, RN [address] [place] [place] [address] Licensed Practical Nurse Family Medicine 06/10/24 06/24/24 documented as of this encounter
--- OUTSIDE RECORDS SUMMARY | 2024-12-27 18:44 | XMS_ITS | Encounter Summary ---
Author Organization [facility] Address [address] [place] [address] Care Team Providers Care Ceramic Tile Installer Name Role Phone Kyle Colon DO Unavailable [phone] Source Comments In the event this information is protected by the Federal Confidentiality of Alcohol and Drug AbusePatient Records regulations: The Federal rules restrict any use of the information to criminally investigate or prosecute any alcohol or drug abuse patient.[facility] Encounter Details Date Type Department Care Team (Late st Contact Info) Description 10/12/2022 Patient Msg Vascular Medicine [address] [place] [id number] Romulo Samaniego III, MD Your visit Social [...] is lower risk 9 08/31/2022 Data from: https://www.neighborhoodatlas.medicine.[facility].edu/. Last address used for calculation [address] [facility] 08/31/2022 Comments Unknown Sex and Gender Information [...] on filedocumented in this encounter Care Teams Ceramic Tile Installer Relationship Specialty Start Date End Date Kyle Colon DO Family Medicine 10/02/23 documented as of this encounter
--- OUTSIDE RECORDS SUMMARY | 2024-12-27 18:44 | XMS_ITS | Encounter Summary ---
Author Organization [facility] Address [address] [place] [address] Care Team Providers Care Toddler Guide Name Role Phone Kyle Colon DO Unavailable [phone] Source Comments In the event this information is protected by the Federal Confidentiality of Alcohol and Drug AbusePatient Records regulations: The Federal rules restrict any use of the information to criminally investigate or prosecute any alcohol or drug abuse patient.[facility] Encounter Details Date Type Department Care Team (Late st Contact Info) Description 10/16/2023 Get Medical Advice Rheumatology [address] [place] [address] Nandini Myers MD [address] [place] [address] Test results Social History Tobacco Use Types Packs/Day Years [...] is lower risk 9 08/31/2022 Data from: https://www.neighborhoodatlas.[facility].edu/. Last address used for calculation [...] on filedocumented in this encounter Care Teams Toddler Guide Relationship Specialty Start Date End Date Kyle Colon DO Family Medicine 10/02/23 documented as of this encounter
--- OUTSIDE RECORDS SUMMARY | 2024-12-27 18:44 | XMS_ITS | Encounter Summary ---
Author Organization [facility] Address [address] [place] [address] Care Team Providers Care Machine Heddle Cleaner Name Role Phone Kyle Colon DO Unavailable [phone] Source Comments In the event this information is protected by the Federal Confidentiality of Alcohol and Drug AbusePatient Records regulations: The Federal rules restrict any use of the information to criminally investigate or prosecute any alcohol or drug abuse patient.[facility] Encounter Details Date Type Department Care Team (Late st Contact Info) Description 10/18/2023 Get Medical Advice Rheumatology [address] [place] [address] Nandini Myers MD [address] [place] [address] Test results Social History Tobacco Use [...] is lower risk 9 08/31/2022 Data from: https://www.neighborhoodatlas.[facility].edu/. Last address used for calculation [address] [...] on filedocumented in this encounter Care Teams Machine Heddle Cleaner Relationship Specialty Start Date End Date Kyle Colon DO Family Medicine 10/02/23 documented as of this encounter
--- OUTSIDE RECORDS SUMMARY | 2024-12-27 18:44 | XMS_ITS | Encounter Summary ---
Author Organization [facility] Address [address] [facility] [place] [address] Care Team Providers Care Char Filter Tank Tender Name Role Phone Kyle Colon DO Unavailable [phone] Kyle Colon DO Primary Care Provider [phone] Judith Mobley LPN Unavailable Unavailable Claudia Cage Unavailable Oxana Kelsey PMP- Unavailable Clair Osborne RN Unavailable Encounter Details Date Type Department Care Team (Late st Contact Info) Description 03/20/2024 Abstract [facility] 230 [address] [facility] 230 [place] [address] Kyle Colon, DO [address] [facility] 230 [place] [address] Social History Tobacco Use Types Packs/Day Years [...] week 11/07/2022 How often do you attend [facility] or orthodoxy services? More than 4 times per year 11/07/2022 Do you belong to any clubs o r organizations such as restorationism groups, unions, fraternal or athletic groups, or [...] Recorded Patient Health Questionnaire-2 Score 0 10/03/2023 [facility] [place] [facility] Occupat ional Health - Occupational Stress [...] place to sleep or slept in a group home (including now)? No 11/07/2022 Education Answer Date [...] Neurology [address] [place] [address] Monse Conrad NP [address] [facility] [address] [place] [address] 04/21/2025 4:00 PM EST Office Visit [facility] [address] [facility] 160 [place] [phone] Oxana Kelsey, [facility] 112 [facility] 160 [place] [address] documented as of this encounter Visit Diagnoses Not on filedocumented in this encounter Additional Health Concerns Assessment Noted Time PHQ-9 Depression Total Score: 12 024 2:18 PM EDT documented as of this encounter Care Teams Char Filter Tank Tender Relationship Specialty Start Date End Date Kyle Colon DO [address] [facility] [address] [place] [address] PCP - [facility] 07/09/22 Kyle Colon DO [address] [facility] 230 [place] [address] PCP - General Family Medicine 06/23/23 Judith Mobley LPN Licensed Practical Nurse Family Medicine 02/21/24 06/10/24 Claudia Cage LISW-S [address] [facility] [address] [place] [address] Prestidigitator Behavioral Health 04/17/24 Oxana Kelsey, [facility] [address] [facility] [facility] [address] [place] [address] Nurse Practitioner Behavioral Health 06/05/24 Clair Osborne, RN [address] [place] [address] Licensed Practical Nurse Family Medicine 06/10/24 06/24/24 documented as of this encounter
--- OUTSIDE RECORDS SUMMARY | 2024-12-27 18:44 | XMS_ITS | Clinical Summary ---
Author Organization [employer] [facility] Address [id number] [address] [place] [address] Care Team Providers Care Manager Of Software Development Name Role Phone YrisKyle ochoa Dimitri NEWSOME Primary Care Provider [phone]- [phone] Allergies Active Allergy Reactions Criticality Noted Date Comments Sulfa (Sulfonamide Antibiotics) Rash Low 10/09 Medications doxepin (SINEquan) 10 mg capsule Take 10 mg by mouth nightly. 8 Active ziprasidone (GEODON) 20 mg capsule Take 20 mg by mouth once daily at bedtime. 8 Active topiramate (TOPAMAX) 25 mg tablet Take 25 mg by mouth once daily at bedtime. 8 Active topiramate (TOPAMAX) 100 mg tablet Take 100 mg by mouth once daily at bedtime. 8 Active etonogestrel (NEXPLANON SDRM) by subdermal route. Active Active Problems Problem Noted Date Diagnosed Date Varicose veins of leg with swelling, bilateral 0 10/26/2023 Assessment & Plan (10/26/2023 9:10 AM EDT): compression stockings leg elevation exercise. I recommended evaluation for by her PCP for her Generalized pain issues. Family History Relation Name Status Comments Brother Alive Father Mother Alive Social History Tobacco Use Types Packs/Day Years Used Date Smoking Tobacco: Never Smokeless Tobacco: Never Alcohol Use Standard Drinks/Week Comments No 0 (1 standard drink = 0.6 oz pur e alcohol) Childcare Answer Date Recorded Childcare Unknown 09/19/2018 Employment Answer Date Recorded Employment Unknown 09/19/2018 Purpose - Life Answer Date Recorded Purpose and direction in life Unknown Comments No Sex and Gender Information Value Date Recorded Sex Assigned at Not on file Legal Sex Female 12:02 PM EDT Gender Identity Not on file Sexual Orientation Not on file Last Filed Vital Signs Vital Sign Reading Time Taken Comments Blood Pressure 132/92 10/26/2023 2:52 PM EDT Pulse 73 10/26/2023 2:52 PM EDT Temperature - - Respiratory Rate 16 10/30/2017 8:31 AM EDT Oxygen Saturation 100% 10/26/2023 2:52 PM EDT Inhaled Oxygen Concentration - - Weight 56.7 kg (125 lb) 11/20/2017 8:34 AM EDT Height - - Body Mass Index - - Plan of Treatment Health Maintenance Due Date Last Done Comments Depression Screening 1999 Tobacco Screening 1999 Adult BMI Screening 2005 DTaP,Tdap and Td Vaccines (1 - Tdap) 2006 Pap Smear 01/09/2008 COVID-19 Vaccine (2 - 2024-2 6 season) 2024 04/14/2021 Influenza Vaccine 12/09/2024 01/13/2020, , 12/30/2017, Additional history exists Medical Devices Not on file Insurance Care Teams Manager Of Software Development Relationship Specialty Start Date End Date Kyle Colon DO [address] [place], [place] [id number] PCP - General 08/09/17
--- OUTSIDE RECORDS SUMMARY | 2024-12-27 18:44 | XMS_ITS | Clinical Summary ---
Author Organization [facility] Address [address] [place] [address] Care Team Providers Care Project Production Engineer Name Role Phone Kyle Colon DO Unavailable [phone] Allergies Active Allergy Reactions Criticality Noted Date Comments Cefaclor Hives,Itching,Unknown 10/23/2015 Sulfa (Sulfonamide Antibiotics) Hives,Rash Low 10/09 Medications LORYNA, 28, 3-0.02 mg per tablet TAKE 1 TABLET BY MOUTH ONCE DAILY CONTINUOUSLY 3 Active bumetanide (BUMEX) 1 mg tablet Take 1 mg by mouth. 3 Active potassium chloride (K-TAB) 10 mEq tablet TAKE ONE TABLET BY MOUTH DAILY WITH FOOD WITH BUMEX 3 Active topiramate (TOPAMAX) 100 mg tablet TAKE 1 AND 12 TABLETS BY MOUTH DAILY 3 Active albuterol HFA (PROVENTIL HFA, VENTOLIN HFA) 90 mcg/actuation inhaler Inhale 2 Puffs as instructed every 6 hours as needed. 4 Active amLODIPine (NORVASC) 2.5 mg tablet 4 Active lisdexamfetamin e (VYVANSE) 60 mg capsule Take 60 mg by mouth. 4 Active furosemide (LASIX) 40 mg tablet Take 40 mg by mouth. 4 Active potassium Cl/lido/0.9 % NaCl (POTASSIUM CL-LIDO-0.9 % SODCHL) 10 mEq-10 mg /100 mL pgbk Active QUEtiapine (SEROQUEL) 50 mg tablet Take 100 mg by mouth. Active Immunizations Immunization Administration Dates Next Due influenza (IIV4) vaccine, ag e 6 mo - 64 yr, quadrivalent, PF (AFLURIA, FLUARIX, FLULAVAL, FLUZONE) 01/13/2020,2018,12/30/2017,2016,01/30/2014 Social History Tobacco Use Types Packs/Day Years Used Date Smoking Tobacco: Never Smokeless Tobacco: Never Tobacco Cessation:Counseling Given: Not Answered Alcohol Use Standard Drinks/Week Comments Yes 2 (1 standard drink = 0.6 oz pur e alcohol) PHQ-2 Answer Date Recorded PHQ-2 score 6 10/04/2023 Area Deprivation Index Answer Date Gustavo rded National Score (1-100), lower number is lower ri sk 91 08/31/2022 State Score (1-10), lower number is lower risk 9 08/31/2022 Data from: https://www.neighborhoodatlas.medicine.[facility]/. Last address used for calculation [address] [facility] 08/31/2022 Comments Unknown Sex and Gender Information Value Date Recorded Sex Assigned at Female 08/27/2022 1:29 PM EDT Legal Sex Female 3:43 PM EDT Gender Identity Female 08/27/2022 1:29 PM EDT Sexual Orientation Straight 08/27/2022 1: 29 PM EDT Last Filed Vital Signs Vital Sign Reading Time Taken Comments Blood Pressure 133/90 10/04/2023 12:18 PM EDT Pulse 85 10/04/2023 12:18 PM EDT Temperature 36.8 C (98.3 F) 10/04/2023 12:18 PM EDT Respiratory Rate - - Oxygen Saturation - - Inhaled Oxygen Concentration - - Weight 60.8 kg (134 lb) 10/04/2023 12:18 PM EDT Height 162.6 cm (5' 4 ) 10/04/2023 12:18 PM EDT Body Mass Index 23 10/04/2023 12:18 PM EDT Plan of Treatment Health Maintenance Due Date Last Done Comments Anxiety Screening 2005 Depression Screening 2005 DTaP,Tdap,Td Vaccine (1 - Tdap) 2006 Hepatitis B Vaccine (1 of 3 - 19+ 3-dose series) 2006 Cervical Cancer Screening 01/09/2008 HPV Vaccine (1 - 3-dose SCDM series) 2014 Influenza Vaccine (#1) 2024 , 2018, 12/30/2017, Additional history exists HIV Screening Completed 10/04/2023 Hepatitis C Screening Completed 10/04/2023, 024 Procedures Procedure Name Priority Date/Time Associated Diagnosis Comments HIV 1/2 COMBO WITH REFLEX TO DIFFERENTIATION Routine 10/04/2023 1:20 PM EDT 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 HIV Interpretation 10/04/2023 6:57 PM EDT [facility] Comment: No evidence of HIV-1 or HIV-2 infection. Should recent infection be suspected, repeat testing may be considered 2-3 weeks after this draw. [place] Rev. Code 3701.243(E): This information has been disclosed to you from confidential records protected from disclosure by state law. You shall make no further disclosure of this information without the specific, written, and informed release of the individual to whom it pertains or as otherwise permitted by state law. A general authorization for the release of medical or other information is not sufficient for the purpose of the release of HIV test results or diagnoses. Blood BLOOD SPECIMEN / Unknown Venipuncture / Unknown 10/04/2023 1:20 PM EDT 10/04/2023 1:21 PM EDT us Nandini Alvarez MD LABORATORY Final Re sult [facility] [address] [facility] [address] [place] [address], [place] from Last 3 Months or Most Recently Relevant to Health Maintenance Insurance [employer] [facility] Care Teams Project Production Engineer Relationship Specialty Start Date End Date Kyle Colon DO Family Medicine 10/02/23
--- OUTSIDE RECORDS SUMMARY | 2024-12-27 18:44 | XMS_ITS | Encounter Summary ---
Author Organization [facility] Address [address] [place] [address] Care Team Providers Care Turf Keeper Name Role Phone Kyle Colon DO Unavailable [phone] Kyle Colon DO Primary Care Provider [phone] Judith Mobley LPN Unavailable Unavailable Claudia Cage Unavailable [phone] Oxana Kelsey PMP- Unavailable Clair Osborne RN Unavailable [phone] Encounter Details Date Type Department Care Team (Late st Contact Info) Description 05/02/2024 Abstract [facility] [address] [facility] 230 [place] [address] Kyle Colon, DO [address] [facility] [address] [place] [address] Social History Tobacco Use Types Packs/Day Years [...] week 11/07/2022 How often do you attend [facility] or sabianist services? More than 4 times per year 11/07/2022 Do you belong to any clubs o r organizations such as nondenominational groups, unions, fraternal or athletic groups, or [...] Recorded Patient Health Questionnaire-2 Score 0 04/11/2024 [facility] of Occupat ional Health - Occupational [...] Neurology [address] [place] [address] Monse Conrad NP 53[address] [facility] [address] [place] [address] 04/21/2025 4:00 PM EST Office Visit [facility] [address] [facility] [address] [place] [address] Oxana Kelsey, [facility] 112 [facility] [address] [place] [address] documented as of this encounter Visit Diagnoses Not on filedocumented in this encounter Additional Health Concerns Assessment Noted Time PHQ-9 Depression Total Score: 12 024 2:18 PM EDT documented as of this encounter Care Teams Turf Keeper Relationship Specialty Start Date End Date Kyle Colon DO [address] [facility] [address] [place] [address] PCP - [facility] 07/09/22 Kyle Colon DO [address] [facility] [address] [place] [address] PCP - General Family Medicine 06/23/23 Judith Mobley LPN Licensed Practical Nurse Family Medicine 02/21/24 06/10/24 Claudia Cage LISW-S [address] [facility] [address] [place] [address] Buyer Liaison Behavioral Health 04/17/24 Oxana Kelsey, [facility] [address] [facility] [address] [place] [address] Nurse Practitioner Behavioral Health 06/05/24 Clair Osborne, RN [address] [place] [address] Licensed Practical Nurse Family Medicine 06/10/24 06/24/24 documented as of this encounter
--- NOTE | 2024-12-27 18:47 | XR_ITS ---
[place] [id number] Patient Name: CORINE SUAL MRN: [id number] date: 1985 Sex: F Assigned Patient Location: ER Current Patient Location: ER Accession/Order Number: [id number] Exam Date: 12/27/2024 19:00 Report Date: 12/27/2024 19:37 At the request of: GUNNAR NORWOOD Procedure: XR lumbar spine 2-3V 3 views lumbar spine INDICATION: Back pain COMPARISON: None FINDINGS: Minor levocurvature thoracolumbar junction. Surgical clips right upper quadrant. Lumbar vertebral heights and alignment unremarkable. Intervertebral spaces preserved. XR/XR lumbar spine 2-3V IMPRESSION: Unremarkable x-rays lumbar spine Impression dictated by: Julio Cesar Parson M.D. 12/27/2024 7:37 PM Dictation Location: [place] [address] Electronically authenticated by: [id number] Y Date: 12/27/2024 19:37
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
[2024-12-27] MEDS: OXYCODONE HCL/ACETAMINOPHEN 5MG/325MG 1 TAB PO (19:06)
[2024-12-27] MEDS: KETOROLAC TROMETHAMINE 30 MG/ML VIAL 15 MG IM (19:06)
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
[2024-12-27 19:25] LABS: Hematocrit 38.7 % (36.0-48.0); Hemoglobin 13.4 g/dL (12.0-16.0); Immature Granulocytes Abs Auto 0.02 10^3/uL (0.00-0.03); Immature Granulocytes Pct Auto 0.2 % (0.0-0.5); Lymphocytes Absolute Auto 1.9 10^3/uL (1.2-3.8); Mean Corpuscular HGB Conc 34.6 g/dL (29.9-35.2); Mean Corpuscular Hemoglobin 32.1 pg (26.7-34.0); Mean Corpuscular Volume 92.8 fL (81.0-99.0); Platelet Count 254 10^3/uL (150-450); Red Blood Count 4.17 10^6/uL (4.20-5.40); White Blood Count 12.0 10^3/uL (4.0-11.0)
[2024-12-27 19:33] LABS: Anion Gap 13.8; Blood Urea Nitrogen 13.0 mg/dL (7.0-18.0); Calcium 8.6 mg/dL (8.5-10.1); Carbon Dioxide 22.7 mmol/L (21.0-32.0); Chloride 107 mmol/L (98-107); Estimated GFR (African America >60 (>=60 mL/min/1.73m^2); Estimated GFR (Non-African Ame >60 (>=60 mL/min/1.73m^2); Glucose 88 mg/dL (74-106); Potassium 3.5 mmol/L (3.5-5.1); Sodium 140 mmol/L (136-145)
[2024-12-27 20:52] LABS: Glucose Urine UA NEGATIVE (NEGATIVE)
[2024-12-27 21:06] VITALS: BP 142/98; PULSE 78; O2SAT 99
== END 2024-12-27 21:08 | disposition home or self-care (01) ==
PROVIDERS: Physician Assistant; Emergency Provider Emergency Medicine; PCP Family Medicine
DX: S30.0XXA Contusion of lower back and pelvis, initial encounter (principal); Y04.8XXA Assault by other bodily force, initial encounter
CPT/HCPCS: 36415; 72100; 74177; 80048; 81003; 85025; 96372; 99285; J1885; Q9967